=== PATIENT | male | born 1960 | race Caucasian/White ===

== ENCOUNTER → 2017-02-07 | Outpatient (REF) | payer OTHER ==
[2017-02-07 17:39] LABS: ALBUMIN 2.8 GM/DL (3.2-5.2); ALKALINE PHOSPHATASE 55 U/L (45-117); ALT/SGPT 20 U/L (12-78); ANION GAP 8 MEQ/L (8-16); AST/SGOT 29 U/L (15-37); BILIRUBIN,TOTAL 0.4 MG/DL (0.2-1.0); BLOOD UREA NITROGEN 4 MG/DL (7-18); CALCIUM LEVEL 8.2 MG/DL (8.5-10.1); CARBON DIOXIDE LEVEL 29 MEQ/L (21-32); CHLORIDE LEVEL 103 MEQ/L (98-107); CREATININE FOR GFR 1.45 MG/DL (0.70-1.30); GLOMERULAR FILTRATION RATE 53.4 (>56); GLUCOSE, FASTING 75 MG/DL (70-105); POTASSIUM SERUM 3.8 MEQ/L (3.5-5.1); SODIUM LEVEL 140 MEQ/L (136-145); TOTAL PROTEIN 6.8 GM/DL (6.4-8.2)
[2017-02-07 18:03] LABS: MEAN CORPUSCULAR HEMOGLOBIN 37.2 pg (27.0-33.0); MEAN CORPUSCULAR HGB CONC 32.7 g/dl (32.0-36.5); RED CELL DISTRIBUTION WIDTH 13.1 % (11.5-14.5); WHITE BLOOD COUNT 5.6 K/mm3 (4.0-10.0)
== END ==
LOC: M LAB REF 16:09
PROVIDERS: ATTEND Internal Medicine Infectious Disease
DX: M86.01 Acute hematogenous osteomyelitis, shoulder (principal)

== ENCOUNTER → 2017-02-14 | Outpatient (REF) | payer OTHER ==
[2017-02-14 19:14] LABS: MEAN CORPUSCULAR HEMOGLOBIN 37.7 pg (27.0-33.0); MEAN CORPUSCULAR HGB CONC 33.8 g/dl (32.0-36.5); MEAN CORPUSCULAR VOLUME 111.7 fl (80.0-96.0); RED CELL DISTRIBUTION WIDTH 13.2 % (11.5-14.5); WHITE BLOOD COUNT 5.9 K/mm3 (4.0-10.0)
[2017-02-14 19:46] LABS: ALBUMIN 2.7 GM/DL (3.2-5.2); ALBUMIN/GLOBULIN RATIO 0.66 (1.00-1.93); ALKALINE PHOSPHATASE 47 U/L (45-117); ALT/SGPT 10 U/L (12-78); ANION GAP 6 MEQ/L (8-16); AST/SGOT 21 U/L (15-37); BILIRUBIN,TOTAL 0.4 MG/DL (0.2-1.0); BLOOD UREA NITROGEN 2 MG/DL (7-18); CALCIUM LEVEL 8.5 MG/DL (8.5-10.1); CARBON DIOXIDE LEVEL 29 MEQ/L (21-32); CHLORIDE LEVEL 102 MEQ/L (98-107); CREATININE FOR GFR 0.82 MG/DL (0.70-1.30); GLOMERULAR FILTRATION RATE > 60.0 (>56); GLUCOSE, FASTING 70 MG/DL (70-105); POTASSIUM SERUM 3.9 MEQ/L (3.5-5.1); SODIUM LEVEL 137 MEQ/L (136-145); TOTAL PROTEIN 6.8 GM/DL (6.4-8.2)
== END ==
LOC: M LAB REF 16:46
PROVIDERS: ATTEND Internal Medicine Infectious Disease
DX: Z00.00 Encounter for general adult medical examination without abnormal findings (principal)

== ENCOUNTER → 2017-02-22 | Outpatient (REF) | payer OTHER ==
[2017-02-22 16:22] LABS: MEAN CORPUSCULAR HEMOGLOBIN 36.7 pg (27.0-33.0); MEAN CORPUSCULAR HGB CONC 34.3 g/dl (32.0-36.5); MEAN CORPUSCULAR VOLUME 107.2 fl (80.0-96.0); RED CELL DISTRIBUTION WIDTH 12.8 % (11.5-14.5); WHITE BLOOD COUNT 5.7 10^3/uL (4.0-10.0)
[2017-02-22 16:42] LABS: ALBUMIN 2.9 GM/DL (3.2-5.2); ALBUMIN/GLOBULIN RATIO 0.73 (1.00-1.93); ALKALINE PHOSPHATASE 43 U/L (45-117); ALT/SGPT 14 U/L (12-78); ANION GAP 9 MEQ/L (8-16); AST/SGOT 26 U/L (15-37); BILIRUBIN,TOTAL 0.3 MG/DL (0.2-1.0); BLOOD UREA NITROGEN 3 MG/DL (7-18); CALCIUM LEVEL 8.8 MG/DL (8.5-10.1); CARBON DIOXIDE LEVEL 26 MEQ/L (21-32); CHLORIDE LEVEL 102 MEQ/L (98-107); CREATININE FOR GFR 0.75 MG/DL (0.70-1.30); GLOMERULAR FILTRATION RATE > 60.0 (>56); GLUCOSE, FASTING 88 MG/DL (70-105); SODIUM LEVEL 137 MEQ/L (136-145); TOTAL PROTEIN 6.9 GM/DL (6.4-8.2)
== END ==
LOC: M LAB REF 15:44
PROVIDERS: ATTEND Internal Medicine Infectious Disease
DX: M86.112 Other acute osteomyelitis, left shoulder (principal)

== ENCOUNTER → 2017-02-28 | Outpatient (REF) | payer OTHER ==
[2017-02-28 18:34] LABS: MEAN CORPUSCULAR HEMOGLOBIN 35.8 pg (27.0-33.0); MEAN CORPUSCULAR HGB CONC 33.8 g/dl (32.0-36.5); RED CELL DISTRIBUTION WIDTH 12.5 % (11.5-14.5); WHITE BLOOD COUNT 7.5 10^3/uL (4.0-10.0)
[2017-02-28 20:33] LABS: ALBUMIN 3.2 GM/DL (3.2-5.2); ALBUMIN/GLOBULIN RATIO 0.73 (1.00-1.93); ALKALINE PHOSPHATASE 54 U/L (45-117); ALT/SGPT 18 U/L (12-78); ANION GAP 9 MEQ/L (8-16); AST/SGOT 38 U/L (15-37); BILIRUBIN,TOTAL 0.4 MG/DL (0.2-1.0); BLOOD UREA NITROGEN 3 MG/DL (7-18); CALCIUM LEVEL 8.9 MG/DL (8.5-10.1); CARBON DIOXIDE LEVEL 26 MEQ/L (21-32); CHLORIDE LEVEL 100 MEQ/L (98-107); CREATININE FOR GFR 0.91 MG/DL (0.70-1.30); GLOMERULAR FILTRATION RATE > 60.0 (>56); GLUCOSE, FASTING 84 MG/DL (70-105); POTASSIUM SERUM 4.2 MEQ/L (3.5-5.1); SODIUM LEVEL 135 MEQ/L (136-145); TOTAL PROTEIN 7.6 GM/DL (6.4-8.2)
== END ==
LOC: M LAB REF 17:24
PROVIDERS: ATTEND Internal Medicine Infectious Disease
DX: M86.112 Other acute osteomyelitis, left shoulder (principal)

== ENCOUNTER → 2019-04-25 | Outpatient (CLI) | payer OTHER ==
[~2019-04-25] MED LIST: GASTROGRAFIN SOLUTION 30ML (Q9963) As Ordered ONE; ISOVUE-370 76% 100ML VIAL (Q9967) As Ordered ONE
--- NOTE | 2019-04-25 18:33 | REP ---
Clinical: Ventral hernia. Pain. Technique: Axial contrast enhanced images from the lung bases to the pubic symphysis using oral (per protocol) and 100 ml Isovue 370 intravenous contrast material with coronal and sagittal re-formations. Comparison: None. Findings: Marked ascites noted throughout the abdomen and pelvis with enlarged heterogeneous hepatic parenchyma and there is subtle micronodular hepatic contour suggesting underlying cirrhosis. Spleen, pancreas, bilateral adrenal glands and kidneys appear normal. The gallbladder is distended without obvious gallstones and no obvious biliary ductal dilatation is appreciated. The enteric system is without obstruction or acute inflammatory process. Colonic diverticulosis noted without acute diverticulitis. Pelvis demonstrates normal bladder and age appropriate prostate/seminal vesicles. No free air. Scattered mesenteric and retroperitoneal lymph nodes are nonspecific and possibly reactive due to the ascites and presumed cirrhosis. A small ascites-filled periumbilical hernia measures 2 cm diameter. Atherosclerotic changes to the aorta and vasculature noted without aneurysm or dissection. Musculoskeletal structures demonstrate degenerative changes without focal abnormality. Lung bases demonstrate moderate bibasilar atelectasis and small bilateral pleural effusions. Impression: 1. Findings most compatible with cirrhosis including heterogeneous enlarged liver with nodular contour and marked ascites. 2. Small periumbilical hernia containing ascites. 3. Moderate bibasilar atelectasis and small pleural effusions. Electronically Signed by Rahat Cabrales MD 04/25/2019 06:24 P
== END ==
LOC: M RAD 15:22
PROVIDERS: ATTEND Family Medicine
DX: K43.9 Ventral hernia without obstruction or gangrene (principal)
CPT/HCPCS: 74178; Q9963; Q9967

== ENCOUNTER 2019-05-06 00:42 | Inpatient (IN) | payer OTHER ==
[~2019-05-06] VITALS: Ht 180.3 cm; Wt 59.1 kg
[2019-05-06] VITALS (22 sets, daily range): BP systolic 84–122; BP diastolic 50–65
[2019-05-06] MEDS ORDERED: LISI10TA4 PO (01:32)
[2019-05-06] MEDS ORDERED: MULTIVITAMIN -ADULT INJECTION 10 ML, THIAMINE INJection 100 MG, FOLIC ACID 1 MG in NS 1... IV ONE (02:00)
[2019-05-06] MEDS ORDERED: THIAMINE 100 MG TAB PO ONE (02:00)
[2019-05-06 02:06] LABS: HEMATOCRIT 30.9 % (42.0-52.0); HEMOGLOBIN 10.5 g/dl (13.5-17.5); MEAN CORPUSCULAR HEMOGLOBIN 38.5 pg (27.0-33.0); MEAN CORPUSCULAR VOLUME 113.2 fl (80.0-96.0); PLATELET COUNT, AUTOMATED 236 10^3/uL (150-450); RED BLOOD COUNT 2.73 10^6/uL (4.30-6.10); WHITE BLOOD COUNT 12.6 10^3/uL (4.0-10.0)
[2019-05-06 02:10] LABS: INR 1.87; PROTHROMBIN TIME 21.3 SECONDS (11.8-14.0)
[2019-05-06 02:11] LABS: PARTIAL THROMBOPLASTIN TIME 36.1 SECONDS (25.0-38.4)
[2019-05-06 02:21] LABS: ALBUMIN 2.5 GM/DL (3.2-5.2); ALT/SGPT 58 U/L (12-78); BILIRUBIN,DIRECT 1.7 MG/DL (0.0-0.2); BILIRUBIN,TOTAL 2.5 MG/DL (0.2-1.0); BLOOD UREA NITROGEN 41 MG/DL (7-18); CALCIUM LEVEL 8.4 MG/DL (8.5-10.1); CARBON DIOXIDE LEVEL 26 MEQ/L (21-32); CHLORIDE LEVEL 99 MEQ/L (98-107); CREATININE FOR GFR 1.26 MG/DL (0.70-1.30); GLOMERULAR FILTRATION RATE > 60.0 (>56); GLUCOSE, FASTING 101 MG/DL (70-100); LIPASE 45 U/L (73-393); LYMPHOCYTES 4 % (16-44); MONOCYTES 4 % (0-5); NEUTROPHILS 92 % (28-66); POTASSIUM SERUM 3.7 MEQ/L (3.5-5.1); SODIUM LEVEL 135 MEQ/L (136-145)
[2019-05-06 02:22] LABS: ETHYL ALCOHOL (ETHANOL) < 0.003 % (0.000-0.010); PLATELET ESTIMATE NORMAL (NORMAL); TOXIC VACUOLATION 1+
[2019-05-06 02:24] LABS: POLYCHROMASIA 1+
[2019-05-06] MEDS ORDERED: PIPERACILLIN/TAZOBACTAM SOD 3.375 GM in D5W MINI-BAG PLUS 50 ML IV ONE (03:15)
[2019-05-06] MEDS ORDERED: LORazepam 2 MG TAB PO PRN (03:30)
[2019-05-06] MEDS ORDERED: ACETAMINOPHEN TAB 650MG DOSE (2X325MG) PO PRN (03:30)
[2019-05-06] MEDS ORDERED: MAALOX 30 ML SUSP *UDC PO PRN (03:30)
--- NOTE | 2019-05-06 03:32 | HPEPDOC ---
[facility] Medical History & Physical Date of Admission May 06, 2019 Date of Service: May 06, 2019 Other Provider [facility] Attending Physician: BEN HANDLEY MD History and Physical TIME OF SERVICE: 405 AM CHIEF COMPLAINT: Abdominal pain HISTORY OF PRESENT ILLNESS: The majority of the history was obtained from the patient's . The patient is not answering all questions appropriately. This is a 65-year-old male who presents with complaints of aching, 6/10 in severity, abdominal pain for 4 weeks. As a result of the pain he has not been able to eat and drink; he has history of alcoholism but has not had a drink in 4 weeks because of the pain. He came to the hospital early this morning because his found him wandering around the house confused. The patient's added that he has been coughing black phlegm, and has had a headache. She denies awareness of him having nausea, vomiting, fever, chills, or runny nose. He use to to have lower extremity edema, but this resolved recently after he was started a new "blood pressure" medication. REVIEW OF SYSTEMS: 12 point review of systems negative except as listed in HPI PAST MEDICAL/ SURGICAL HISTORY: Alcoholic liver cirrhosis with ascites and pleural effusion ( per CT of the abdomen and pelvis done on 04/25/2019) Chronic hypertension Chronic diastolic dysfunction/ HEFpEF History of left shoulder surgery SOCIAL HISTORY: He quit smoking He has a history of alcoholism and at his baseline usually drinks at least a 12 pack per day He is a FAMILY HISTORY: His father had coronary artery disease His mother had lupus Another relative had kidney disease ALLERGIES: Please see below HOME MEDICATIONS: Please see below PHYSICAL EXAMINATION: VITAL SIGNS: Please see below NORMAL PHYSICAL EXAM GEN: Cachectic/ well developed/ anxious INTEGUMENT: jaundice HEENT: normocephalic / atraumatic /mucus membranes moist and pink / sclera icteric CVS: RRR/NMRG/ radial and dorsalis pedis pulses intact / no lower extremity edema LUNGS: able to speak full sentences without stopping to take a breath / lungs are clear to auscultation bilaterally on room air ABDOMEN: is abdomen is slightly distended/he has a small umbilical hernia and medusae/ abdomen is tender with palpation MSK/EXTREMITIES: range of motion intact in all 4 extremities NEURO: CN 2-12 are grossly intact / speech is not dysarthric / strength is 4 out of 4 in all extremities PSYCH: he is alert and oriented to person and place but not time/ he is able able to understand and follow all commands LABORATORY DATA: See below IMAGING: No new imaging MICROBIOLOGY: Please see below ASSESSMENT: Mr. White is a 58-year-old with past medical history of alcoholic liver cirrhosis, chronic hypertension, & chronic HEpEF who will be admitted for management of SBP PLAN: 1. Sepsis secondary to Spontaneous Bacterial Peritonitis Clinical signs and symptoms that support the diagnosis of SBP include confusion, abdominal pain, ascites, leukocytosis SIRS criteria include tachycardia, and leukocytosis Lactic acid is 5.8 NEW2S Score = 5 points = medium risk Plan: admit to PCU for frequent neurochecks / telemetry / Sepsis protocol w repeat lactic acid /for now we will start ciprofloxacin bc cefotaxime is not on the formulary / since his BUN is >30 we will also give 1.5 g/kg of intravenous albumin (25%) today and 1 g/kg of albumin on day 3 bc this practice has demonstrated a survival benefit / the day time team can f/u w GI during the day to determine if he should be discharged with norfloxacin OR ciprofloxacin for secondary prevention of SBP / we will not order IVF to avoid third spacing in the setting of liver failure / target MAP 65 to 70 / f/u Is and Os with target UOP of at least 0.5 ml/kg/H / target serum glucose 140-180 while acutely ill / f/u blood cx and abdominal fluid cx results 2. Alcoholic Liver cirrhosis CT report from Apr 25 reviewed he also had ascites and pleural effusions The coagulopathy and transaminitis likely due to liver failure Meld score (new) = 20 points = 19.6% estimated 3 month mortality Plan:f/u strict Is and Os and daily weights / salt restriction to <2g / trend L FTs and coags / since his MELD Score >10 we will consult GI / / the day time team can consider discharging him with baclofen to help him with abstinence from alcohol / avoid NSAIDs & ARBs 3. Macrocytic anemia, likely due to alcohol abuse His baseline hemoglobin is around 13--> today it is 10.5 If his retic # is elevated the differential includes B12 deficiency or folate deficiency. If the retic # is decreased the macrocytosi smay be due to liver disease. Since he has liver failure he may also have a component of anemia of chronic disease Plan:f/u CBC, reticulocyte count, B12, RBC folate, thiamine, iron panel 4. Chronic diastolic dysfunction 2/2 Chronic HTN Plan: will hold antihypertensives because of acute illness 5. Low TSH, Likely due to euthyroid sick syndrome. Plan: He can follow-up with PCP for repeat TFTs in 6 weeks DVT prophylaxis with lovenox Disposition likely home after more than midnight stay Vital Signs Vital Signs Date Time Temp Pulse Resp B/P (MAP) Pulse Ox O2 Delivery O2 Flow Rate FiO2 05/06/19 03:00 109 16 123/80 (94) 98 Room Air 05/06/19 01:19 96.2 Laboratory Data Labs 24H Laboratory Tests 2 05/06/19 01:17: Nucleated Red Blood Cells % (auto) 0.0, Neutrophils 92H, Lymphocytes (Manual) 4L, Monocytes (Manual) 4, Polychromasia 1+, Macrocytosis 3+, Toxic Vacuolation 1+, Platelet Estimate NORMAL, Prothrombin Time 21.3H, Prothromb Time International Ratio 1.87, Activated Partial Thromboplast Time 36.1, Anion Gap 10, Glomerular Filtration Rate > 60.0, Lactic Acid Level 5.8*H, Calcium Level 8.4L, Total Bilirubin 2.5H, Direct Bilirubin 1.7H, Aspartate Amino Transf (AST/SGOT) 119H, Alanine Aminotransferase (ALT/SGPT) 58, Alkaline Phosphatase 59, Ammonia < 10, Total Protein 7.0, Albumin 2.5L, Albumin/Globulin Ratio 0.56L, Lipase 45L, Ethyl Alcohol Level < 0.003 CBC/BMP Laboratory Tests 05/06/19 01:17 Home Medications Scheduled Lisinopril (Lisinopril) 10 Mg Tablet, 10 MG PO DAILY Allergies Coded Allergies: No Known Allergies (Unverified , 07/22/15) A-FIB/CHADSVASC A-FIB History Current/History of A-Fib/PAF?: No Current PO Anticoag Therapy: No BEN HANDLEY MD May 06, 2019 03:32
[2019-05-06] MEDS: THIAMINE 100 MG TAB PO SCH ×2 (03:34→22:18)
[2019-05-06] MEDS ORDERED: ONDANSETRON 4MG/2ML VIAL (J2405) As Ordered ONE (03:52)
[2019-05-06] MEDS ORDERED: ZOSYN 3.375 GM VIAL (J2543) As Ordered ONE (03:52)
[2019-05-06] MEDS ORDERED: MORPHINE 4 MG/ML 1ML VIAL/SYRINGE (J2270) As Ordered ONE (03:53)
[2019-05-06 03:56] LABS: THYROID STIMULATING HORMONE 0.177 uIU/ML (0.358-3.740)
[2019-05-06] MEDS ORDERED: MORPHINE 4 MG/ML 1ML VIAL/SYRINGE (J2270) IV ONE (04:00)
[2019-05-06] MEDS ORDERED: LIDOCAINE W/EPINEPHRINE 1% 20ML VIAL SC ONE (04:00)
[2019-05-06 04:44] LABS: APPEARANCE, BODY FLUID CLOUDY (CLEAR); ASCITES FL COLOR YELLOW (COLORLESS); SOURCE, BODY FLUID ASCITES
[2019-05-06] MEDS ORDERED: NS 1,000 ML IV SCH (05:45)
[2019-05-06] MEDS ORDERED: CIPROFLOXACIN 400 MG in IV 1 EA IV SCH (06:00)
[2019-05-06 06:22] LABS: FERRITIN 917 NG/ML (26-388); IRON (FE) 9 UG/DL (65-175); TOTAL IRON BINDING CAPACITY 150 UG/DL (250-450)
[2019-05-06 06:32] LABS: ABG HCO3 21.7 MEQ/L (22.0-26.0); ABG O2 SATURATION 95.9 % (95.0-99.0); ABG PARTIAL PRESSURE CO2 29.3 mmHg (35.0-45.0); ABG PARTIAL PRESSURE O2 79.7 mmHg (75.0-100.0); ABG STANDARD HCO3 23.6 MEQ/L (22.0-26.0); ABG TOTAL CO2 22.6 MEQ/L (22.0-29.0); ABG pH (ARTERIAL) 7.488 UNITS (7.350-7.450)
[2019-05-06] MEDS ORDERED: IBUPROFEN 600 MG TAB PO ONE (07:15)
[2019-05-06 07:18] LABS: HEMATOCRIT 25.9 % (42.0-52.0)
[2019-05-06] MEDS ORDERED: KETOROLAC 30 MG/ML VIAL (J1885) IV ONE (08:45)
[2019-05-06] MEDS ORDERED: NS 500 ML IV ONE (08:45)
[2019-05-06] MEDS ORDERED: ENOXAPARIN 30 MG/0.3 ML SYR (J1650) SC SCH (09:00)
[2019-05-06] MEDS: MULTIVITAMINS/MINERALS THERAP 1 TAB PO SCH ×2 (09:20→13:38)
[2019-05-06] MEDS: ONDANSETRON 4MG/2ML VIAL (J2405) IV PRN ×2 (09:20→09:23)
[2019-05-06] MEDS: FOLIC ACID 1 MG TAB PO SCH ×2 (09:21→13:38)
[2019-05-06] MEDS: cefTRIAXone SOD 1 GM in D5W MINI-BAG PLUS 50 ML IV SCH ×2 (09:22→22:18)
[2019-05-06] MEDS ORDERED: PIPERACILLIN/TAZOBACTAM SOD 3.375 GM in D5W MINI-BAG PLUS 50 ML IV SCH ×2 (12:00)
[2019-05-06] MEDS ORDERED: KETOROLAC 30 MG/ML VIAL (J1885) IV SCH (17:00)
[2019-05-06 17:18] LABS: HEMATOCRIT 24.5 % (42.0-52.0); MEAN CORPUSCULAR HEMOGLOBIN 38.2 pg (27.0-33.0); MEAN CORPUSCULAR HGB CONC 33.9 g/dl (32.0-36.5); MEAN CORPUSCULAR VOLUME 112.9 fl (80.0-96.0); PLATELET COUNT, AUTOMATED 147 10^3/uL (150-450); RED BLOOD COUNT 2.17 10^6/uL (4.30-6.10); WHITE BLOOD COUNT 10.2 10^3/uL (4.0-10.0)
[2019-05-06 17:24] LABS: HEMOGLOBIN 8.3 g/dl (13.5-17.5)
[2019-05-06 17:32] LABS: ALBUMIN 2.5 GM/DL (3.2-5.2); ALT/SGPT 46 U/L (12-78); BILIRUBIN,TOTAL 2.3 MG/DL (0.2-1.0); BLOOD UREA NITROGEN 45 MG/DL (7-18); CALCIUM LEVEL 8.2 MG/DL (8.5-10.1); CARBON DIOXIDE LEVEL 25 MEQ/L (21-32); CHLORIDE LEVEL 104 MEQ/L (98-107); CREATININE FOR GFR 1.19 MG/DL (0.70-1.30); GLOMERULAR FILTRATION RATE > 60.0 (>56); GLUCOSE, FASTING 110 MG/DL (70-100); POTASSIUM SERUM 3.6 MEQ/L (3.5-5.1); SODIUM LEVEL 136 MEQ/L (136-145); TOTAL PROTEIN 5.9 GM/DL (6.4-8.2)
[2019-05-06 17:40] LABS: LYMPHOCYTES 9 % (16-44); MONOCYTES 5 % (0-5); NEUTROPHILS 86 % (28-66); PLATELET ESTIMATE NORMAL (NORMAL)
--- NOTE | 2019-05-06 18:42 | IPNPDOC ---
Text Note Date of Service The patient was seen on 05/06/19. NOTE SUBJECTIVE: Complains of abdominal pain and distension for a month worse over the past 4 days. As per has been confused over the past 4 days. Poor appetite but today did seat some in the hospital more than what he was doing at home. Says has been cutting down on the alcohol intake over the past 6 months to a year and over the past month did not have much drink . His last drink was about 4 to 5 days ago when the pain became really bad. No fevers at home, no vomiting or diarrhea. He also complains of left hip pain. PHYSICAL EXAMINATION: VITAL SIGNS: Please see below. NORMAL PHYSICAL EXAM GEN: Cachectic/ well developed/ confused regarding time HEENT: normocephalic / atraumatic /mucus membranes moist and pink / sclera icteric CVS: RRR/NMRG/ radial and dorsalis pedis pulses intact / no lower extremity edema, No rub murmur or gallop. LUNGS: able to speak full sentences without stopping to take a breath / lungs are clear to auscultation bilaterally on room air ABDOMEN: is abdomen is tensely distended/he has a small umbilical hernia and medusae/ abdomen is tender with palpation in all quadrants, bowel sounds present. MSK/EXTREMITIES: range of motion intact in all 4 extremities NEURO: CN 2-12 are grossly intact / speech is not dysarthric / strength is 4 out of 4 in all extremities PSYCH: he is alert and oriented to person and place but not time/ he is able able to understand and follow all commands LABORATORY DATA: Reviewed See below. MICROBIOLOGY: Please see below. ASSESSMENT: Mr. White is a 58-year-old with past medical history of Alcoholic liver cirrhosis with ascites and pleural effusion ( per CT of the abdomen and pelvis done on 04/25/2019 ), Hypertension, Chronic Systolic and diastolic CHF with EF of 45 to 50% in echo of 2016, History of left shoulder surgery presented to the ED with abdominal pain and distention worsening over the past 1 month and confusion for the past 4 days which was really worse on coni morning of the admission when found found him wandering about the house confused. He had a diagnostic tap in the ED and was found to have SBP. SBP cultures showing gram negative rods will change antibiotics to ceftriaxone will give 1.5 gm/ kg body weight of albumin 25% over today. will schedule for therapeutic paracentesis for tomorrow. GI consulted. Sepsis secondary to Spontaneous Bacterial Peritonitis will continue with ceftriaxone. Metabolic encephalopathy due to sepsis and SBP Ammonia is not elevated so unlikely hepatic encephalopathy Elevated lactate part of it is probably due to alcoholic cirrhosis. it did improve but not completely Coagulopathy. will recheck tomorrow may have to give FFP before IR will do a paracentesis. Decompensated Alcoholic Liver cirrhosis with ascites, coagulopathy, SBP Macrocytic anemia, likely due to alcohol abuse reticulocyte count is elevated. follow up B12, RBC folate, thiamine There is no iron deficiency. will transfuse PRN Chronic systolic and diastolic CHF EF of 45 to 50% in the echo from 2016 now seems to be intra vascularly dehydrated as his Hb is much higher than his baseline. will hold any diuretics and will not give any further fluids. Low TSH, Likely due to euthyroid sick syndrome. He can follow-up with PCP for repeat TFTs in 6 weeks DVT prophylaxis with TEDS, patient is auto anticoagulated at this point. VS,Fishbone, I+O VS, Fishbone, I+O Laboratory Tests 05/06/19 01:17 05/06/19 07:01 05/06/19 16:45 Vital Signs Date Time Temp Pulse Resp B/P (MAP) Pulse Ox O2 Delivery O2 Flow Rate FiO2 05/06/19 15:57 99.0 104 16 94/54 96 Room Air I&O- Last 24 Hours up to 6 AM 05/06/19 06:00 Intake Total 1050 ml Balance 1050 ml SHANTHI DAVIS MD May 06, 2019 18:42
[2019-05-06 20:18] LABS: HEMATOCRIT 22.6 % (42.0-52.0); HEMOGLOBIN 7.6 g/dl (13.5-17.5); MEAN CORPUSCULAR HEMOGLOBIN 37.4 pg (27.0-33.0); MEAN CORPUSCULAR HGB CONC 33.6 g/dl (32.0-36.5); MEAN CORPUSCULAR VOLUME 111.3 fl (80.0-96.0); PLATELET COUNT, AUTOMATED 131 10^3/uL (150-450); RED BLOOD COUNT 2.03 10^6/uL (4.30-6.10)
[2019-05-06 20:34] LABS: LYMPHOCYTES 12 % (16-44); MONOCYTES 7 % (0-5); NEUTROPHILS 74 % (28-66); PLATELET ESTIMATE NORMAL (NORMAL)
[2019-05-06 20:35] LABS: POLYCHROMASIA 1+
[2019-05-06 20:38] LABS: ALBUMIN 2.8 GM/DL (3.2-5.2); ALT/SGPT 41 U/L (12-78); BLOOD UREA NITROGEN 44 MG/DL (7-18); CALCIUM LEVEL 8.4 MG/DL (8.5-10.1); CARBON DIOXIDE LEVEL 25 MEQ/L (21-32); CHLORIDE LEVEL 104 MEQ/L (98-107); CREATININE FOR GFR 1.16 MG/DL (0.70-1.30); GLOMERULAR FILTRATION RATE > 60.0 (>56); GLUCOSE, FASTING 103 MG/DL (70-100); POTASSIUM SERUM 3.2 MEQ/L (3.5-5.1); SODIUM LEVEL 136 MEQ/L (136-145)
[2019-05-06] MEDS: KCL 10MEQ/100ML SWI (KRUN) 10 MEQ in IV 1 EA IV SCH (23:10)
[2019-05-07] VITALS (24 sets, daily range): BP systolic 90–127; BP diastolic 50–76
[2019-05-07] MEDS: KCL 10MEQ/100ML SWI (KRUN) 10 MEQ in IV 1 EA IV SCH (00:26)
[2019-05-07 01:15] LABS: HEMATOCRIT 23.1 % (42.0-52.0); HEMOGLOBIN 7.8 g/dl (13.5-17.5); MEAN CORPUSCULAR HEMOGLOBIN 37.5 pg (27.0-33.0); MEAN CORPUSCULAR HGB CONC 33.8 g/dl (32.0-36.5); MEAN CORPUSCULAR VOLUME 111.1 fl (80.0-96.0); PLATELET COUNT, AUTOMATED 143 10^3/uL (150-450); RED BLOOD COUNT 2.08 10^6/uL (4.30-6.10); WHITE BLOOD COUNT 10.5 10^3/uL (4.0-10.0)
[2019-05-07 02:10] LABS: LYMPHOCYTES 9 % (16-44); MONOCYTES 4 % (0-5); NEUTROPHILS 80 % (28-66); PLATELET ESTIMATE NORMAL (NORMAL)
[2019-05-07 02:11] LABS: POLYCHROMASIA 1+
[2019-05-07 02:17] LABS: ALBUMIN 3.3 GM/DL (3.2-5.2); ALT/SGPT 43 U/L (12-78); BILIRUBIN,TOTAL 2.2 MG/DL (0.2-1.0); BLOOD UREA NITROGEN 42 MG/DL (7-18); CALCIUM LEVEL 8.7 MG/DL (8.5-10.1); CARBON DIOXIDE LEVEL 26 MEQ/L (21-32); CHLORIDE LEVEL 103 MEQ/L (98-107); CREATININE FOR GFR 1.11 MG/DL (0.70-1.30); GLOMERULAR FILTRATION RATE > 60.0 (>56); GLUCOSE, FASTING 98 MG/DL (70-100); POTASSIUM SERUM 3.6 MEQ/L (3.5-5.1); SODIUM LEVEL 138 MEQ/L (136-145); TOTAL PROTEIN 6.3 GM/DL (6.4-8.2)
[2019-05-07] MEDS: KETOROLAC 30 MG/ML VIAL (J1885) IV PRN ×3 (03:19→22:53)
[2019-05-07 05:48] LABS: HEMATOCRIT 22.9 % (42.0-52.0); HEMOGLOBIN 7.8 g/dl (13.5-17.5); MEAN CORPUSCULAR HEMOGLOBIN 37.9 pg (27.0-33.0); MEAN CORPUSCULAR HGB CONC 34.1 g/dl (32.0-36.5); MEAN CORPUSCULAR VOLUME 111.2 fl (80.0-96.0); PLATELET COUNT, AUTOMATED 143 10^3/uL (150-450); RED BLOOD COUNT 2.06 10^6/uL (4.30-6.10); WHITE BLOOD COUNT 9.6 10^3/uL (4.0-10.0)
[2019-05-07 05:51] LABS: INR 1.99; PARTIAL THROMBOPLASTIN TIME 41.2 SECONDS (25.0-38.4); PROTHROMBIN TIME 22.4 SECONDS (11.8-14.0)
[2019-05-07 05:58] LABS: ALT/SGPT 42 U/L (12-78); BILIRUBIN,DIRECT 1.3 MG/DL (0.0-0.2); BILIRUBIN,TOTAL 2.1 MG/DL (0.2-1.0); BLOOD UREA NITROGEN 41 MG/DL (7-18); CALCIUM LEVEL 8.6 MG/DL (8.5-10.1); CARBON DIOXIDE LEVEL 25 MEQ/L (21-32); CHLORIDE LEVEL 104 MEQ/L (98-107); CREATININE FOR GFR 1.01 MG/DL (0.70-1.30); GLOMERULAR FILTRATION RATE > 60.0 (>56); GLUCOSE, FASTING 96 MG/DL (70-100); MAGNESIUM LEVEL 2.1 MG/DL (1.8-2.4); POTASSIUM SERUM 3.5 MEQ/L (3.5-5.1); SODIUM LEVEL 136 MEQ/L (136-145); TOTAL PROTEIN 6.1 GM/DL (6.4-8.2)
[2019-05-07 06:32] LABS: ATYPICAL LYMPH 1 % (0-5); LYMPHOCYTES 2 % (16-44); MONOCYTES 9 % (0-5); NEUTROPHILS 86 % (28-66)
[2019-05-07 06:33] LABS: PLATELET ESTIMATE NORMAL (NORMAL); POLYCHROMASIA 1+
--- NOTE | 2019-05-07 07:44 | REP ---
AP LATERAL LEFT HIP: 05/06/2019. COMPARISON: CT abdomen pelvis 04/25/2019. CLINICAL HISTORY: Left hip pain. FINDINGS: AP and frog-leg views show small rim osteophyte in the femoral head. Hip joint space shows some sclerosis acetabular roof without significant narrowing. There is no AVN or fracture. No fracture about the acetabulum, ischia or symphysis pubis, iliac wing SI joints, sacral ala and foramina are unremarkable. Some degenerative changes lower lumbar spine. IMPRESSION: 1. Mild osteoarthritic change without fracture, avulsion or other acute finding. No AVN. Electronically Signed by Joaquin Ross MD 05/07/2019 07:49 A
[2019-05-07] MEDS: THIAMINE 100 MG TAB PO SCH ×2 (09:44→20:07)
[2019-05-07] MEDS: FOLIC ACID 1 MG TAB PO SCH (09:45)
[2019-05-07] MEDS: MULTIVITAMINS/MINERALS THERAP 1 TAB PO SCH (09:46)
[2019-05-07] MEDS: oxyCODONE 5MG TAB PO PRN ×2 (09:46→17:29)
[2019-05-07] MEDS: cefTRIAXone SOD 1 GM in D5W MINI-BAG PLUS 50 ML IV SCH ×2 (09:46→20:07)
--- NOTE | 2019-05-07 10:11 | IPNPDOC ---
Text Note Date of Service The patient was seen on 05/07/19. NOTE SUBJECTIVE: Patient complains of persistent abdominal pain and distension. Still a little confused but says better, no fever or chills, no voming , no bowel movement. Very poor oral intake. Patient does have some voiding problems PHYSICAL EXAMINATION: VITAL SIGNS: Please see below. GEN: Cachectic, confused regarding time HEENT: normocephalic / atraumatic /mucus membranes moist and pink / sclera icteric CVS: RRR/NMRG/ radial and dorsalis pedis pulses intact / no lower extremity edema, No rub murmur or gallop. LUNGS: able to speak in full sentences without stopping to take a breath / lungs are clear to auscultation bilaterally on room air ABDOMEN: abdomen is tensely distended/he has a small umbilical hernia and medusae/ abdomen is diffusely tender to palpation bowel sounds present. MSK/EXTREMITIES: range of motion intact in all 4 extremities NEURO: CN 2-12 are grossly intact / speech is not dysarthric / strength is 4 out of 4 in all extremities PSYCH: he is alert and oriented to person and place but not time/ he is able able to understand and follow all commands LABORATORY DATA: Reviewed See below. MICROBIOLOGY: Please see below. ASSESSMENT: Mr. White is a 58-year-old with past medical history of Alcoholic liver cirrhosis with ascites and pleural effusion ( per CT of the abdomen and pelvis done on 04/25/2019 ), Hypertension, Chronic Systolic and diastolic CHF with EF of 45 to 50% in echo of 2016, History of left shoulder surgery presented to the ED with abdominal pain and distention worsening over the past 1 month and conf usion for the past 4 days which was really worse on coni morning of the admission when found found him wandering about the house confused. He had a diagnostic tap in the ED and was found to have SBP. SBP cultures showing gram negative rods On ceftriaxone got 1.5 gm/ kg body weight of albumin 25% therapeutic paracentesis GI consulted. Sepsis secondary to Spontaneous Bacterial Peritonitis will continue with ceftriaxone. Metabolic encephalopathy due to sepsis and SBP Ammonia is not elevated so unlikely hepatic encephalopathy Elevated lactate part of it is probably due to alcoholic cirrhosis. it did improve Coagulopathy. due to Chronic liver disease. will give FFP. Decompensated Alcoholic Liver cirrhosis with ascites, coagulopathy, SBP Macrocytic anemia, likely due to alcohol abuse reticulocyte count is elevated. follow up B12, RBC folate, thiamine There is no iron deficiency. will transfuse PRN Chronic systolic and diastolic CHF EF of 45% to 50% in the echo from 2016 now seems to be intra vascularly dehydrated as his Hb is much higher than his baseline. will hold any diuretics and will not give any further fluids. Low TSH, Likely due to euthyroid sick syndrome. He can follow-up with PCP for repeat TFTs in 6 weeks DVT prophylaxis with TEDS, patient is auto anticoagulated at this point. VS,Fishbone, I+O VS, Fishbone, I+O Laboratory Tests 05/06/19 16:45 05/06/19 20:08 05/07/19 01:06 05/07/19 01:07 05/07/19 04:53 Vital Signs Date Time Temp Pulse Resp B/P (MAP) Pulse Ox O2 Delivery O2 Flow Rate FiO2 05/07/19 09:46 20 96 Room Air 05/07/19 09:15 98.0 109 112/69 I&O- Last 24 Hours up to 6 AM 05/07/19 06:00 Intake Total 1183.7 ml Output Total 580 ml Balance 603.7 ml SHANTHI DAVIS MD May 07, 2019 10:11
[2019-05-07] MEDS ORDERED: SLF 3 ML SYR IV PRN (14:45)
[2019-05-07 15:01] LABS: INR 1.66; PROTHROMBIN TIME 19.3 SECONDS (11.8-14.0)
[2019-05-07 15:02] LABS: PARTIAL THROMBOPLASTIN TIME 34.3 SECONDS (25.0-38.4)
[2019-05-07 16:06] LABS: APPEARANCE, BODY FLUID HAZY (CLEAR); PERITONEAL FL COLOR YELLOW (COLORLESS); SOURCE, BODY FLUID PERITONEAL
[2019-05-07 16:10] LABS: SPEC. GRAVITY BODY FLUIDS 1.015 (NOT ESTABLISHED)
[2019-05-07 16:19] LABS: SOURCE, BODY FLUID ALBUMIN PERITONEAL
[2019-05-07 16:28] LABS: SOURCE, BODY FLUID GLUCOSE PERITONEAL; SOURCE, BODY FLUID TOT PROTEIN PERITONEAL; TOTAL PROTEIN, BODY FLUID 1.7 G/DL (NOT ESTABLISHED)
--- NOTE | 2019-05-07 17:14 | REP ---
Ultrasound-guided paracentesis The procedure was performed under the direct supervision of Dr. Angela. The risks and benefits of the procedure were explained to the patient and informed consent was obtained. The largest pocket of fluid was localized in the right flank using ultrasound guidance. The skin was prepped and draped in a sterile fashion. 1% lidocaine was used as a local anesthetic. An 8-Arabic multi side-hole catheter was inserted using trocar technique. 3500 ml of anthony colored fluid was withdrawn with a sample sent to the lab for analysis. The patient tolerated the procedure well and there were no immediate complications. After the appropriate amount of monitored convalescence the patient was discharged from the department. Electronically Signed by CHARLIE Odom 05/07/2019 04:50 P Electronically Signed by Alejandro Angela MD 05/07/2019 05:06 P
[2019-05-07] MEDS: SLF 3 ML SYR IV SCH (20:07)
[2019-05-07] MEDS ORDERED: SPIRONOLACTONE 50 MG TAB PO SCH (21:00)
[2019-05-08] VITALS (17 sets, daily range): BP systolic 82–126; BP diastolic 50–75
[2019-05-08 00:52] LABS: HEMATOCRIT 25.8 % (42.0-52.0); HEMOGLOBIN 8.8 g/dl (13.5-17.5); MEAN CORPUSCULAR HEMOGLOBIN 37.8 pg (27.0-33.0); MEAN CORPUSCULAR HGB CONC 34.1 g/dl (32.0-36.5); MEAN CORPUSCULAR VOLUME 110.7 fl (80.0-96.0); PLATELET COUNT, AUTOMATED 165 10^3/uL (150-450); RED BLOOD COUNT 2.33 10^6/uL (4.30-6.10); WHITE BLOOD COUNT 14.9 10^3/uL (4.0-10.0)
--- NOTE | 2019-05-08 00:56 | REPVR ---
PROCEDURE INFORMATION: Exam: CT Abdomen And Pelvis Without Contrast Exam date and time: 05/07/2019 11:18 PM Age: 58 years old Clinical history: Bloating; Additional info: Acute abdominal ridigity and distention. History of a paracentesis on 05/07/2019. TECHNIQUE: Imaging protocol: Computed tomography of the abdomen and pelvis without contrast. Radiation optimization: All CT scans at this facility use at least one of these dose optimization techniques: automated exposure control; mA and/or kV adjustment per patient size (includes targeted exams where dose is matched to clinical indication); or iterative reconstruction. COMPARISON: PARACENTESIS NEEDLE PLACE US 05/07/2019 2:59:[address] ABD PELVIS W/O FOLLOWED BY WITH CONTRAST 04/25/2019 5:34 PM FINDINGS: Lungs: There is consolidation with air bronchograms in the left lower lobe, which has developed since the prior CT on 04/25/2019. There is dependent atelectasis in the right lower lobe. Heart: No cardiomegaly. There is a small water density pericardial effusion. There are coronary artery calcifications. Mediastinum: There is fluid in the esophagus, which can be seen with gastroesophageal reflux. Liver: The liver has a nodular contour, which can be seen with cirrhosis. There is a punctate calcified granuloma in the right hepatic lobe, which is unchanged compared to the prior CT on 04/25/2019. No hepatomegaly. Gallbladder and bile ducts: No calcified gallstones are seen. No dilation of the intrahepatic or extrahepatic bile ducts is noted. Pancreas: Unremarkable. No ductal dilation. Spleen: Unremarkable. No splenomegaly. Adrenals: Normal. No mass. Kidneys and ureters: The kidneys are unremarkable. No renal lesion is identified. No calculi are seen in the kidneys or ureters. There is no hydronephrosis or hydroureter. Stomach and bowel: There is colonic diverticulosis without evidence for diverticulitis. There is no evidence for a bowel obstruction, colitis, pneumatosis intestinalis, intussusception, or volvulus. Appendix: There is a 5 mm appendicolith in the proximal portion of the appendix, but the appendix is not dilated and there is no inflammatory fat stranding around the appendix to suggest acute appendicitis. Intraperitoneal space: There is a moderate amount of ascites, which is similar in appearance compared to the prior CT on 04/25/2019. There is a small amount of free air in the abdomen and pelvis, which may be related to the recent paracentesis performed earlier on 05/07/2019. A perforated viscus cannot entirely be excluded. Retroperitoneal space: No mass. Vasculature: No abdominal aortic aneurysm. There are extensive atherosclerotic calcifications. Lymph nodes: There is a 10 mm enlarged left para-aortic lymph node, which is stable compared to the prior CT on 04/25/2019. No other enlarged lymph nodes are noted in the abdomen or pelvis. Bladder: Unremarkable. No calculi or masses are noted in the bladder. Reproductive: There are calcifications in the prostate gland. The seminal vesicles are unremarkable. Bones/joints: The imaged bony structures are intact. There is no suspicious osteolytic lesion. Incidental note is made of a small bone island in the right femoral neck, which is unchanged compared to the prior CT on 04/25/2019. Soft tissues: There is a small periumbilical hernia containing fluid and gas. IMPRESSION: 1. Small amount of free air in the abdomen and pelvis, which may be related to the recent paracentesis performed earlier on 05/07/2019. A perforated viscus cannot entirely be excluded. 2. Consolidation with air bronchograms in the left lower lobe, which has developed since the prior CT on 04/25/2019 and may represent pneumonia. 3. Cirrhotic liver and a moderate amount of ascites, without significant change compared to the prior CT on 04/25/2019. 4. Colonic diverticulosis without evidence for diverticulitis. 5. Small periumbilical hernia containing fluid and gas. 6. Evidence for gastroesophageal reflux. Electronically signed by: Sidney Wilcox On 05/08/2019 00:56:35 AM
--- NOTE | 2019-05-08 00:57 | REPVR ---
PROCEDURE INFORMATION: Exam: US Abdomen Complete Exam date and time: 05/08/2019 12:11 AM Age: 58 years old Clinical history: Increased pain and distension, S/P paracentesis today; Additional info: Portal vein thrombus? TECHNIQUE: Imaging protocol: Real-time ultrasound of the abdomen with image documentation. COMPARISON: CT ABD PELVIS W/O CONTRAST 05/07/2019 11:35:14 PM FINDINGS: Liver: The echogenicity of the liver is heterogeneous. No liver mass is identified from the images obtained. The contour of the liver is nodular, which can be seen with cirrhosis. No hepatomegaly is noted. Gallbladder: No gallstones, masses, sonographic Brice's sign, or pericholecystic fluid. The wall of the gallbladder is thickened and measures 6 mm in thickness. Common bile duct: No dilation (5 mm in diameter). No stones are identified in the imaged portion of the common bile duct. Pancreas: The visualized portion of the pancreas is unremarkable. Right kidney: The right kidney is normal in appearance and measures 11 cm in length. There is no renal cortical thinning. The renal cortical echogenicity is within normal limits. No renal lesion is seen. There is no hydronephrosis. No obvious stones are seen in the renal collecting system. Left kidney: The left kidney is normal in appearance and measures 12.9 cm in length. There is no renal cortical thinning. The renal cortical echogenicity is within normal limits. No renal lesion is seen. There is no hydronephrosis. No obvious stones are seen in the renal collecting system. Spleen: Unremarkable. No splenomegaly. The spleen measures 11.5 cm. Aorta: Obscured by intestinal gas. Inferior vena cava: Obscured by intestinal gas. Intraperitoneal space: There is a moderate amount of ascites. IMPRESSION: 1. Heterogeneous, nodular appearance of the liver, which is compatible with cirrhosis. 2. Moderate amount of ascites. PROCEDURE INFORMATION: Exam: US Duplex Artery and Vein of the Abdominal and/or Reproductive Organs. Complete Liver Exam date and time: 05/08/2019 12:11 AM Age: 58 years old Clinical history: Increased pain and distension, S/P paracentesis today; Additional info: Portal vein thrombus? TECHNIQUE: Imaging protocol: Real-time duplex ultrasound scan of the arterial and venous flow with color Doppler flow and spectral waveform analysis with image documentation. Complete duplex exam focused on the liver and portal vein. Duplex images required to evaluate vascular conditions. COMPARISON: CT ABD PELVIS W/O CONTRAST 05/07/2019 11:35:14 PM FINDINGS: Portal venous: Patent main and right and left portal veins. Normal waveforms. Hepatopetal (towards the liver) flow. The main portal vein measures 11 mm in diameter, which is within normal limits. Hepatic veins: The imaged portions of the hepatic veins are patent and demonstrate normal hepatofugal flow. Hepatic artery: The imaged portion of the hepatic artery is patent. IMPRESSION: Unremarkable duplex of the portal vein. No portal vein thrombosis. Electronically signed by: Sidney Wilcox On 05/08/2019 00:57:08 AM
[2019-05-08 01:04] LABS: INR 1.63; PROTHROMBIN TIME 19.1 SECONDS (11.8-14.0)
[2019-05-08 01:15] LABS: ATYPICAL LYMPH 2 % (0-5); LYMPHOCYTES 1 % (16-44); MONOCYTES 5 % (0-5); NEUTROPHILS 91 % (28-66); PLATELET CLUMPS SMALL AMT; PLATELET ESTIMATE NORMAL (NORMAL)
[2019-05-08 01:16] LABS: POLYCHROMASIA 1+
[2019-05-08] MEDS: ONDANSETRON 4MG/2ML VIAL (J2405) IV PRN (01:16)
[2019-05-08 01:26] LABS: ALBUMIN 2.9 GM/DL (3.2-5.2); ALT/SGPT 39 U/L (12-78); BILIRUBIN,TOTAL 1.9 MG/DL (0.2-1.0); BLOOD UREA NITROGEN 37 MG/DL (7-18); CALCIUM LEVEL 8.4 MG/DL (8.5-10.1); CARBON DIOXIDE LEVEL 25 MEQ/L (21-32); CHLORIDE LEVEL 103 MEQ/L (98-107); CREATININE FOR GFR 1.24 MG/DL (0.70-1.30); GLOMERULAR FILTRATION RATE > 60.0 (>56); GLUCOSE, FASTING 147 MG/DL (70-100); POTASSIUM SERUM 3.8 MEQ/L (3.5-5.1); SODIUM LEVEL 138 MEQ/L (136-145)
[2019-05-08] MEDS ORDERED: FUROSEMIDE 40 MG/4 ML VIAL (J1940) IV ONE (02:00)
[2019-05-08] MEDS ORDERED: MORPHINE 4 MG/ML 1ML VIAL/SYRINGE (J2270) IV PRN (02:00)
[2019-05-08] MEDS ORDERED: MORPHINE 2 MG/ML 1ML VIAL (J2270) IV ONE (02:00)
--- NOTE | 2019-05-08 03:02 | IPNPDOC ---
Date Seen The patient was seen on 05/08/19. Progress Note I was called to bedside at 3200by nursing due increased abdominal girth and abdominal pain. Nursing stated the abdominal exam changed from 1999 to 0 assessment. They stated he was stable abdominal exam was benign initially soft with no pain. I evaluated the patient at bedside, the abdomen appeared distended with increased typhanmy and dullness on percussion with hypoactive bowl sounds. Mr. White appeared unconformable and stated to be in significant amount of pain. BP was stable. Stat CT abdomen without contrast and liver Doppler ultrasound were ordered. Repeat labs were ordered such as CBC, BMP, PT/INR, and Ammonia levels. CT imaging was reviewed which showed moderate ascites and some amount of air in the abdomen and pelvis from recent paracentesis. When I reviewed the imaging, the Bladder appeared slightly distended and possible BPH as well. Because the patient still had significant ascites, a coude 16 Kerr was placed by me at bedside. Because of the air in the abdomen I did call Dr. Saldivar, to review the imaging to see if the patient is a surgical candidate, which he wasn't. Dr. Grey was called as well, for he was officially consulted. Both providers did recommend repeat CBC in the AM to trend the H/H to make sure the patient did not bleed into the abdomen for he has coag dysfunction. Due there being significant amount of ascites in the abdomen, repeat parenthesis today under ultrasound. Pain control with short acting opioids or benzos. 40mg Lasix IV x1 + morphine was ordered to provide relief. All of this convened to the patient and , who is in agreeable to the plan. VS, I&O, 24H, Fishbone Vital Signs/I&O Vital Signs Date Time Temp Pulse Resp B/P (MAP) Pulse Ox O2 Delivery O2 Flow Rate FiO2 05/08/19 01:25 20 05/08/19 00:00 98.3 134 126/75 (92) 95 Room Air I&O- Last 24 Hours up to 6 AM 05/08/19 06:00 Intake Total 1717 ml Output Total 500 ml Balance 1217 ml Laboratory Data 24H LABS Laboratory Tests 2 05/07/19 04:53: Nucleated Red Blood Cells % (auto) 0.2H, Neutrophils 86H, Band Neutrophils 2, Lymphocytes (Manual) 2L, Monocytes (Manual) 9H, Atypical Lymphocytes 1, Polyc hromasia 1+, Macrocytosis 1+, Platelet Estimate NORMAL, Prothrombin Time 22.4H, Prothromb Time International Ratio 1.99, Activated Partial Thromboplast Time 41.2H, Anion Gap 7L, Glomerular Filtration Rate > 60.0, Calcium Level 8.6, Magnesium Level 2.1, Total Bilirubin 2.1H, Direct Bilirubin 1.3H, Aspartate Amino Transf (AST/SGOT) 85H, Alanine Aminotransferase (ALT/SGPT) 42, Alkaline Phosphatase 44L, Total Protein 6.1L, Albumin 3.0L, Albumin/Globulin Ratio 0.97L 05/07/19 14:13: Bedside Glucose (Misc Panel) 116H 05/07/19 14:37: Prothrombin Time 19.3H, Prothromb Time International Ratio 1.66, Activated Partial Thromboplast Time 34.3 05/07/19 15:10: Body Fluid Specific [place] 1.015, Body Fluid WBC (Auto) 4131H, Body Fluid RBC (Auto) 2, Body Fluid Mononuclear Cells % Auto 21.4H, Fluid Polymorphonuclear Cell % Auto 78.6H, Body Fluid Glucose Source PERITONEAL, Body Fluid Glucose 85, Body Fluid Protein Source PERITONEAL, Body Fluid Total Protein 1.7, Body Fluid Albumin Source PERITONEAL, Body Fluid Albumin 0.8, Peritoneal Fluid Source PERITONEAL, Peritoneal Fluid Color YELLOW, Peritoneal Fluid Appearance HAZY 05/07/19 17:32: Bedside Glucose (Misc Panel) 96 05/08/19 00:44: Nucleated Red Blood Cells % (auto) 0.1H, Neutrophils 91H, Band Neutrophils 1, Lymphocytes (Manual) 1L, Monocytes (Manual) 5, Atypical Lymphocytes 2, Polychromasia 1+, Macrocytosis 2+, Platelet Estimate NORMAL, Clumped Platelets SMALL AMT, Prothrombin Time 19.1H, Prothromb Time International Ratio 1.63, Anion Gap 10, Glomerular Filtration Rate > 60.0, Calcium Level 8.4L, Total Bilirubin 1.9H, Aspartate Amino Transf (AST/SGOT) 75H, Alanine Aminotransferase (ALT/SGPT) 39, Alkaline Phosphatase 56, Ammonia 20, Total Protein 6.0L, Albumin 2.9L, Albumin/Globulin Ratio 0.94L CBC/BMP Laboratory Tests 05/07/19 04:53 05/08/19 00:44 Microbiology Microbiology 05/07/19 Acid Fast Stain, Received Pending 05/07/19 Mycobacterial Culture, Received Pending 05/07/19 Fungal Smear, Received Pending 05/07/19 Fungal Culture, Received Pending 05/07/19 Gram Stain, Received Pending 05/07/19 Body Fluid Culture, Received Pending 05/07/19 Anaerobic Culture, Received Pending 05/06/19 Blood Culture - Preliminary, Resulted No growth after 24 hours . All specim... 05/06/19 Blood Culture - Preliminary, Resulted No growth after 24 hours . All specim... 05/06/19 Gram Stain - Final, Resulted 05/06/19 Body Fluid Culture, Resulted Pending AVILA LIND DO May 08, 2019 03:02
[2019-05-08 05:09] LABS: HEMATOCRIT 25.6 % (42.0-52.0); HEMOGLOBIN 8.6 g/dl (13.5-17.5); MEAN CORPUSCULAR HEMOGLOBIN 37.6 pg (27.0-33.0); MEAN CORPUSCULAR HGB CONC 33.6 g/dl (32.0-36.5); MEAN CORPUSCULAR VOLUME 111.8 fl (80.0-96.0); PLATELET COUNT, AUTOMATED 168 10^3/uL (150-450); RED BLOOD COUNT 2.29 10^6/uL (4.30-6.10); WHITE BLOOD COUNT 16.4 10^3/uL (4.0-10.0)
[2019-05-08 05:31] LABS: ALBUMIN 2.8 GM/DL (3.2-5.2); BILIRUBIN,DIRECT 1.3 MG/DL (0.0-0.2); BILIRUBIN,TOTAL 2.1 MG/DL (0.2-1.0); CALCIUM LEVEL 8.4 MG/DL (8.5-10.1); CREATININE FOR GFR 1.44 MG/DL (0.70-1.30); GLOMERULAR FILTRATION RATE 53.5 (>56); POTASSIUM SERUM 3.9 MEQ/L (3.5-5.1); TOTAL PROTEIN 6.3 GM/DL (6.4-8.2)
[2019-05-08 05:37] LABS: LYMPHOCYTES 2 % (16-44); MONOCYTES 6 % (0-5); NEUTROPHILS 90 % (28-66); PLATELET ESTIMATE NORMAL (NORMAL); POLYCHROMASIA 1+
[2019-05-08 05:38] LABS: HYPOCHROMASIA 1+; PLATELET CLUMPS SMALL AMT; SMUDGE CELLS 1+; TOXIC VACUOLATION 1+
[2019-05-08] MEDS: TAMSULOSIN 0.4 MG CAP PO SCH (05:57)
[2019-05-08] MEDS: SLF 3 ML SYR IV SCH ×3 (05:57→21:34)
[2019-05-08] MEDS: KETOROLAC 30 MG/ML VIAL (J1885) IV PRN (06:54)
[2019-05-08] MEDS ORDERED: MEROPENEM INJ 2 GM in NS 100 ML IV SCH (07:45)
[2019-05-08] MEDS: SIMETHICONE 40MG/0.6ML DROPS 30ML PO SCH ×3 (08:00→18:10)
[2019-05-08] MEDS ORDERED: prednisoLONE (PRELONE) 15MG/5ML SYRUP UDC PO SCH (09:00)
[2019-05-08] MEDS: MULTIVITAMINS/MINERALS THERAP 1 TAB PO SCH (09:37)
[2019-05-08] MEDS: THIAMINE 100 MG TAB PO SCH ×2 (09:37→21:33)
[2019-05-08] MEDS: MEROPENEM INJ 1 GM in IV 1 EA IV SCH ×2 (09:37→21:34)
[2019-05-08] MEDS: FOLIC ACID 1 MG TAB PO SCH (09:37)
--- NOTE | 2019-05-08 09:50 | REP ---
KUB: Single view. HISTORY: Rule out perforated viscus. FINDINGS: Monitoring electrodes overlie the abdomen. There are loops of air-filled mildly prominent small bowel in the left central abdomen. There is a somewhat dilated loop of air-filled right colon. There is evidence of ascitic fluid lateral to the colon. Flank stripes are intact. Psoas margins are obscured. No mass or pathologic calcification is seen. No free air seen on this single supine abdominal film. Bowel gas pattern is unchanged from the lifts and cranes inspector view done the previous evening for the abdominal CT study. Electronically Signed by Griffin Galicia MD 05/08/2019 05:13 P
[2019-05-08] MEDS: oxyCODONE 5MG TAB PO PRN ×3 (12:57→22:18)
--- NOTE | 2019-05-08 14:16 | IPN ---
DATE: 05/08/2019 Patient is afebrile with no complaints of chills overnight, but complains of severe pain in the bilateral lower quadrants, right upper quadrant of the abdomen. Repeat CT abdomen showed consolidation with air bronchograms in the left lower lobe which has developed since prior CT. Dependent atelectasis in the right lower lobe. There is a small density, pericardial effusion, fluid in the esophagus which can be seen with reflux, nodular liver, small free air related to recent paracentesis, could not exclude perforated viscus, cirrhotic liver, moderate amount of ascites without significant change from prior CT on 04/25. Small periumbilical hernia containing fluid and gas. The patient was evaluated clinically, was found to be stable and remained in PCU. Systolic pressure was 90 and albumin infusions were ordered. The patient's red count has increased to 16,000 due to concerns of worsening intra-abdominal infection. The patient's ceftriaxone was changed to IV meropenem which is dosed renally due to acute kidney injury of 1.44, lactic acid was elevated at 6. Per evening resident, the patient's CT was evaluated by general surgery who felt that there was no acute abdomen that required any surgical intervention. Per Dr. Grey check serial abdominal films regarding the free air. Recheck for a diagnostic paracentesis and broaden the antibiotics. VITAL SIGNS: Temperature 97.7, pulse 115, respiratory rate 17, blood pressure 100/64, 97% on room air. Generally, patient is awake, alert, oriented to person, place and time. He is anicteric with no jaundice. Dry mucous membranes, appears cachectic with bitemporal wasting. Lungs are diminished with fine crackles at the right base. Heart S1, S2 sinus tachycardia. Abdomen is distended with nodular hepatosplenomegaly noted on the right. Doughy in appearance with positive fluid wave and tympanitic on exam. Extremities no pitting edema. LABORATORY DATA: Notable or creatinine of 1.44, lactic of 6.1, white count is 15, hemoglobin of 8.6, hematocrit of 25. Microbiology: On 05/07 fluid no organism seen. Previous body fluid on 05/06 E. Coli, which is sensitive to ertapenem and ceftriaxone, resistant to cefazolin, ampicillin, ampicillin-sulbactam, sensitive to Levaquin. ASSESSMENT/PLAN: This is a 58-year-old male with history of alcoholism, chronic diastolic failure, alcoholic liver cirrhosis with ascites and pleural effusions, hypertension, smoker, who presents with abdominal pain. CURRENT ISSUES: 1. Spontaneous bacterial peritonitis (SBP) status post ceftriaxone, now broadly covered with meropenem, renally dosed. 2. Acute kidney injury secondary to third spacing. Currently on albumin infusions. We have discontinued the patient's Toradol as a potential reason for acute kidney injury. Currently on oxycodone for pain control. 3. Alcoholic liver cirrhosis. CT showed ascites and pleural effusions on Dr. Grey has been consulted and recommended broader spectrum antibiotics. Repeat diagnostic paracentesis. 4. Macrocytic anemia due to alcohol abuse. No acute GI bleed noted. 5. Chronic diastolic heart failure secondary to hypertensive heart disease. Blood pressure medications have been held due to current low blood pressure from decompensated liver failure. 6. Decompensated liver disease with recurrent ascites. Diagnostic paracentesis in the morning. 7. Lactic acidosis due to decreased perfusion from sepsis due to SBP. Currently on IV meropenem. Transfusions with albumin. 8. Deep vein thrombosis (DVT) prophylaxis with compression stockings. Pain control with IV morphine and oxycodone . Avoid acetaminophen products. 9. Urine retention, on Flomax. Kerr catheter and post void residual checks. MTDD
[2019-05-08 15:05] LABS: APPEARANCE, BODY FLUID CLOUDY (CLEAR); PERITONEAL FL COLOR YELLOW (COLORLESS); SOURCE, BODY FLUID PERITONEAL; SPEC. GRAVITY BODY FLUIDS 1.019 (NOT ESTABLISHED)
[2019-05-08 15:15] LABS: SOURCE, BODY FLUID ALBUMIN PERITONEAL
[2019-05-08 15:19] LABS: SOURCE, BODY FLUID GLUCOSE PERITONEAL; SOURCE, BODY FLUID TOT PROTEIN PERITONEAL; TOTAL PROTEIN, BODY FLUID 2.5 G/DL (NOT ESTABLISHED)
--- NOTE | 2019-05-08 22:26 | CR.PDOC ---
General Date of Consultation: May 07, 2019 Referring Provider: BEN HANDLEY MD Attending Physician: DANELLE WETZEL MD Consultation Primary physician/ hospitalist: - Reason for consult: -Liver cirrhosis and SBP HPI: 65-year-old male with HTN, chronic heavy alcohol use, alcoholic liver cirrhosis (not following with any guest experience specialist/braille transcriber), presented with complaints of worsening abdominal pain. Patient had diagnostic paracentesis and was noted to have SBP and started on antibiotics. GI was consulted for further evaluation. Patient is examined on 05/07/2019. Patient is alert, oriented 3 when examined. Patient reports noticing progressively worsening abdominal di stention with Aching, 6/10 in severity, abdominal pain for 4 weeks, associated with loss of appetite and poor oral intake. Patient reports drinking daily, 4-6 beers (but as per other reports he is to drink more than that). As per the records. Patient was also noted to have spells of confusion at home. Patient's reports some unintentional weight loss, and was not sure if it was related to his poor diet and his work schedule Pertinent negative GI symptoms: Patient denies fever, sick contacts, recent travel, nausea, vomiting, diarrhea. No history of hematemesis, melena or hematochezia. Review of Systems: GI: as stated above CVS: No chest pain, No palpitations, No leg swelling. RS: No Shortness of breath, No Wheezing, no cough SEEDLING SORTER: No dizziness, No motor weakness, No sensory problems Hematology: No bruising, No gum bleeding, Musculoskeletal: No joint pain, ambulating well. Skin: No rash : No hematuria, No burning sensation of the urine ENT: No ear discharge/ pain, No dysphagia. Eyes: No photophobia. Jaundice Home medications: reviewed. Antithrombotic agents: -None Medical h/o: As above. Surgical h/o: None on abdomen. Social h/o: Alcohol: -. Heavy alcohol use as above for many years, smoking:. Denies, IVDA/ drugs: Denies. Family h/o of GI cancers - None Prior Endoscopies: None Prior GI evaluations: - None in [facility] Exam: Vitals: reviewed General: Alert and oriented x 3, not in distress HEENT: NO pallor, no icterus. Normal oropharynx, NO cervical lymph nodes. Chest: symmetric with bilateral clear air entry, CVS: S1, S2 heard, normal, no murmurs . Abdomen: non-distended, no surgical scars, soft, non-tender, no palpable masses, normal bowel sounds heard. Rectal exam: Patient refused / Deferred at this time in view of scheduled colonoscopy. Extremities: no pedal edema, pulses palpable. SEEDLING SORTER: no focal motor or sensory deficits. Moves all extremities Skin: no rash. Labs: reviewed. Imaging: reviewed. Impression: - Abdominal distention and abdominal pain, in patient with chronic heavy alcohol use and diagnostic paracentesis - revealed SBP. - Liver cirrhosis likely etiology alcohol, CTP C, MELD Na-19, decompensated, with SBP, Mild encephalopathy, no prior EGD to evaluate for esophageal varices, and no liver mass on last imaging ( CT abdomen done in this admission). Poor prognosis due to SBP. - Loss of appetite, unintentional weight loss likely related alcohol related illness. Needs further evaluation. Recommendations: - Patient educated about the test results, possible differential diagnoses and All questions answered. - Continue Antibiotics for SBP -- Ceftriaxone and give albumin 1.5gm/ Kg body weight on day 1 and 1gm/ Kg Body weight on day 3. - Thiamine, folic acid and multivitamin. - Diet as tolerated with sodium restriction. - Give oral or rectal lactulose for mild encephalopathy. - Avoid NSAIDs, long acting opioids, and Benzodiazepines. - If clinical symptoms of abdominal pain and distention does not improve consider repeat diagnostic tap with fluid cultures and Cell counts on day 3-4 of the antibiotic therapy. - Hold diuretics and beta- blockers for now until the acute issue of SBP is controlled. - Elective EGD and Colonoscopy discussed with patient and further evaluation as out patient for weight loss. - Poor prognosis due to decompensated liver cirrhosis and SBP. Plan of care discussed with patient and primary team. Patient verbalized understanding and agreed with the plan. Addendum 05/08/2019: Patient underwent therapeutic paracentesis yesterday due to persistent abdominal distention and discomfort. Fluid analysis review-- improving SBP. Patient did received albumin. Over night patient is noted with worsening abdominal distention and night resident taking care of the patient call me to review the findings. CT scan abdomen report reviewed in morning - noted small amount of free air in abdomen with moderate ascites. Recommendations: -- Keep patient NPO -- broaden the spectrum of antibiotics. -- Obtain abdominal xray in evening to check if worsening free air. -- Consider rectal lactulose. -- For severe pain consider low dose short acting opioids. -- Avoid NSAIDs -- consider repeating the diagnostic paracentesis in 1-2 days to obtain cultures and cellcounts. -- Follow with surgery recommendations. plan of care discussed with hospitalist physician. Vital Signs/I&O Vital Signs Date Time Temp Pulse Resp B/P (MAP) Pulse Ox O2 Delivery O2 Flow Rate FiO2 05/08/19 06:00 122 90/58 05/08/19 04:00 98.9 18 95 Room Air I&O- Last 24 Hours up to 6 AM 05/08/19 06:00 Intake Total 2637 ml Output Total 1200 ml Balance 1437 ml Laboratory Data Labs 24H Laboratory Tests 2 05/07/19 14:13: Bedside Glucose (Misc Panel) 116H 05/07/19 14:37: Prothrombin Time 19.3H, Prothromb Time International Ratio 1.66, Activated Partial Thromboplast Time 34.3 05/07/19 15:10: Body Fluid Specific [place] 1.015, Body Fluid WBC (Auto) 4131H, Body Fluid RBC (Auto) 2, Body Fluid Mononuclear Cells % Auto 21.4H, Fluid Polymorphonuclear Cell % Auto 78.6H, Body Fluid Glucose Source PERITONEAL, Body Fluid Glucose 85, Body Fluid Protein Source PERITONEAL, Body Fluid Total Protein 1.7, Body Fluid Albumin Source PERITONEAL, Body Fluid Albumin 0.8, Peritoneal Fluid Source PERITONEAL, Peritoneal Fluid Color YELLOW, Peritoneal Fluid Appearance HAZY 05/07/19 17:32: Bedside Glucose (Misc Panel) 96 05/08/19 00:44: Nucleated Red Blood Cells % (auto) 0.1H, Neutrophils 91H, Band Neutrophils 1, Lymphocytes (Manual) 1L, Monocytes (Manual) 5, Atypical Lymphocytes 2, Polychromasia 1+, Macrocytosis 2+, Platelet Estimate NORMAL, Clumped Platelets SMALL AMT, Prothrombin Time 19.1H, Prothromb Time International Ratio 1.63, Anion Gap 10, Glomerular Filtration Rate > 60.0, Calcium Level 8.4L, Total Bilirubin 1.9H, Aspartate Amino Transf (AST/SGOT) 75H, Alanine Aminotransferase (ALT/SGPT) 39, Alkaline Phosphatase 56, Ammonia 20, Total Protein 6.0L, Albumin 2.9L, Albumin/Globulin Ratio 0.94L 05/08/19 04:39: Nucleated Red Blood Cells % (auto) 0.2H, Neutrophils 90H, Band Neutrophils 2, Lymphocytes (Manual) 2L, Monocytes (Manual) 6H, Polychromasia 1+, Macrocytosis 2+, Platelet Estimate NORMAL, Clumped Platelets SMALL AMT, Anion Gap 7L, Glomerular Filtration Rate 53.5L, Calcium Level 8.4L, Total Bilirubin 2.1H, Aspartate Amino Transf (AST/SGOT) 77H, Alanine Aminotransferase (ALT/SGPT) 42, Alkaline Phosphatase 64, Total Protein 6.3L, Albumin 2.8L, Albumin/Globulin Ratio 0.80L, Hypochromasia 1+, Toxic Vacuolation 1+, Smudge Cells 1+, Direct Bilirubin 1.3H CBC/BMP Laboratory Tests 05/08/19 00:44 05/08/19 04:39 Microbiology Microbiology 05/07/19 Acid Fast Stain, Received Pending 05/07/19 Mycobacterial Culture, Received Pending 05/07/19 Fungal Smear, Received Pending 05/07/19 Fungal Culture, Received Pending 05/07/19 Gram Stain, Received Pending 05/07/19 Body Fluid Culture, Received Pending 05/07/19 Anaerobic Culture, Received Pending 05/06/19 Blood Culture - Preliminary, Resulted No growth after 24 hours . All specim... 05/06/19 Blood Culture - Preliminary, Resulted No Growth after 48 hours. All Specime... 05/06/19 Gram Stain - Final, Resulted 05/06/19 Body Fluid Culture - Preliminary, Resulted Escherichia Coli Allergies Coded Allergies: No Known Allergies (Unverified , 07/22/15) Home Medications Scheduled Lisinopril (Lisinopril) 10 Mg Tablet, 10 MG PO DAILY, (Reported) DANELLE WETZEL MD May 08, 2019 07:20
--- NOTE | 2019-05-08 22:30 | REPVR ---
PROCEDURE INFORMATION: Exam: XR Abdomen, 3 or More Views Exam date and time: 05/08/2019 10:06 PM Age: 58 years old Clinical history: Other: Post paracentesis; Additional info: Stat read- abd pain distention R/O free air TECHNIQUE: Imaging protocol: XR of the abdomen. Frontal supine, upright and one or more additional views. Views: 3 or more views. COMPARISON: CR Abdomen,Flat Plate KUB 05/08/2019 8:21 AM FINDINGS: Lower thorax: Atelectasis right lower lobe. Gastrointestinal tract: Air-fluid levels in the small bowel consistent with an ileus or early small bowel obstruction. No significant bowel dilatation at this time. Intraperitoneal space: Groundglass density in the abdomen consistent with ascites. Bones/joints: Unremarkable for age. IMPRESSION: 1. Air-fluid levels in the small bowel consistent with an ileus or early small bowel obstruction. No significant bowel dilatation at this time. 2. Groundglass density in the abdomen consistent with ascites. Electronically signed by: Gerson Roy On 05/08/2019 22:29:42 PM
[2019-05-09] VITALS (23 sets, daily range): BP systolic 74–119; BP diastolic 43–65
[2019-05-09] MEDS: DOCUSATE SODIUM 100 MG CAP PO SCH ×2 (00:54→09:03)
[2019-05-09] MEDS: MIRALAX *UNIT DOSE* 17GM PACKET PO SCH ×2 (00:54→09:04)
[2019-05-09] MEDS ORDERED: MORPHINE 2 MG/ML 1ML VIAL (J2270) IV ONE ×2 (01:45→21:00)
[2019-05-09] MEDS: oxyCODONE 5MG TAB PO PRN ×3 (04:31→17:53)
[2019-05-09] MEDS: SLF 3 ML SYR IV SCH ×3 (04:34→22:00)
[2019-05-09 05:39] LABS: BASO % 0.2 % (0.0-1.0); EOS # 0.1 10^3/uL (0.0-0.5); EOS % 0.3 % (0.0-3.0); HEMATOCRIT 24.3 % (42.0-52.0); HEMOGLOBIN 8.5 g/dl (13.5-17.5); LYMPH # 0.9 10^3/uL (1.5-5.0); LYMPH % 5.2 % (24.0-44.0); MEAN CORPUSCULAR HEMOGLOBIN 38.3 pg (27.0-33.0); MEAN CORPUSCULAR VOLUME 109.5 fl (80.0-96.0); MONO # 1.8 10^3/uL (0.0-0.8); MONO % 10.6 % (0.0-5.0); NEUTROPHILS # 13.6 10^3/uL (1.5-8.5); NEUTROPHILS % 80.8 % (36.0-66.0); PLATELET COUNT, AUTOMATED 146 10^3/uL (150-450); RED BLOOD COUNT 2.22 10^6/uL (4.30-6.10); WHITE BLOOD COUNT 16.8 10^3/uL (4.0-10.0)
[2019-05-09 06:05] LABS: ALBUMIN 3.2 GM/DL (3.2-5.2); BILIRUBIN,DIRECT 1.4 MG/DL (0.0-0.2); BILIRUBIN,TOTAL 2.4 MG/DL (0.2-1.0); CALCIUM LEVEL 8.7 MG/DL (8.5-10.1); CREATININE FOR GFR 2.57 MG/DL (0.70-1.30); GLOMERULAR FILTRATION RATE 27.4 (>56); POTASSIUM SERUM 4.1 MEQ/L (3.5-5.1); TOTAL PROTEIN 6.1 GM/DL (6.4-8.2)
[2019-05-09] MEDS ORDERED: NS 1,000 ML IV ONE ×3 (08:00→19:00)
[2019-05-09] MEDS: SIMETHICONE 40MG/0.6ML DROPS 30ML PO SCH ×3 (08:00→18:55)
--- NOTE | 2019-05-09 08:39 | PHACANCOPD ---
PHARMACY VANCOMYCIN DOSING Pt Demographics Demographics Patient Age:58 , Weight:59.100 , Gender: male Adjusted Body Weight Date: 05/09/19, Adjusted Body Weight: Kg Events Past 24 Hours Events Past 24 Hours: YES: Elevation in WBC Vancomycin Vancomycin Target Ranges: 15-20 mcg/ml Vancomycin Load Y/N: Yes Load Dose Date Time Vancomycin Load Dose: 1250 MG Date: 05/09/19 Time: 0900 Vancomycin Dose Date: 05/09/19. Current Vancomycin Dose: [1 GM IV Q24H] Intermittent Dosing?: No Labs Labs Item Value Date Time White Blood Count 16.4 10^3/uL H 05/08/19 0439 White Blood Count 16.8 10^3/uL H 05/09/19 0519 White Blood Count 14.9 10^3/uL H 05/08/19 0044 White Blood Count 10.5 10^3/uL H 05/07/19 0107 Lactic Acid Followup at 4 Hours 3.8 MMOL/L *H 05/08/19 1514 Lactic Acid Level 6.1 MMOL/L *H 05/08/19 0956 Micro Microbiology 05/08/19 Acid Fast Stain, Received Pending 05/08/19 Mycobacterial Culture, Received Pending 05/08/19 Fungal Smear, Received Pending 05/08/19 Fungal Culture, Received Pending 05/08/19 Gram Stain - Final, Resulted 05/08/19 Body Fluid Culture, Resulted Pending 05/08/19 Anaerobic Culture, Resulted Pending 05/07/19 Acid Fast Stain, Received Pending 05/07/19 Mycobacterial Culture, Received Pending 05/07/19 Fungal Smear, Received Pending 05/07/19 Fungal Culture, Received Pending 05/07/19 Gram Stain - Final, Resulted 05/07/19 Body Fluid Culture, Resulted Pending 05/07/19 Anaerobic Culture, Resulted Pending 05/06/19 Blood Culture - Preliminary, Resulted No Growth after 72 hours. All specime... 05/06/19 Blood Culture - Preliminary, Resulted No Growth after 72 hours. All specime... 05/06/19 Gram Stain - Final, Complete 05/06/19 Body Fluid Culture - Final, Complete Escherichia Coli Enterococcus Raffinosus Creatinine Clearance Date:05/09/19. Creatinine Clearance: [~26 ml/min]. Assessment and Plan Maintaining Current Dose?: Yes Reason for dose change: No Dose Change Pharmacist Note Pharmacist Note Date: 05/09/19. Pharmacist note: Pharmacy consulted for Vancomycin dosing of SBP in 58 year old male, not improving on Rocephin or Meropenem. Patients WBC is rising despite abx therapy. No previous MRSA or vanco history here at [facility]. We'll load him with 1250 mg and follow with 1 gm iv q24h. Pharmacy will continue to monitor and make adjustments as needed. [facility] May 09, 2019 08:39
[2019-05-09] MEDS ORDERED: VANCOMYCIN HCL 750 MG, VIAL MATE ADAPTER 1 EACH in D5W 250 ML IV ONE ×2 (09:00→10:00)
[2019-05-09] MEDS ORDERED: VANCOMYCIN HCL 500 MG in D5W MINI-BAG PLUS 100 ML IV ONE (09:00)
[2019-05-09] MEDS: FOLIC ACID 1 MG TAB PO SCH (09:03)
[2019-05-09] MEDS: MULTIVITAMINS/MINERALS THERAP 1 TAB PO SCH (09:03)
[2019-05-09] MEDS: TAMSULOSIN 0.4 MG CAP PO SCH (09:03)
--- NOTE | 2019-05-09 09:24 | REP ---
KUB: Single view. History: Abdomen pain and distension. Status post paracentesis. Rule out perforation. Comparison is made with yesterday's chest x-ray May 08, 2019 which shows a small amount of free air under the right hemidiaphragm. This was visible by CT study on 05/07/2019. Findings: Dilated loops of large and small bowel persist in the central abdomen consistent with ileus. Bowel gas pattern is not significantly changed. There is a subtle gas shadow in the paraduodenal region of the right upper quadrant which could be the recently identified peritoneal air. No other evidence of free air is seen on this supine radiograph. Electronically Signed by Griffin Galicia MD 05/09/2019 05:37 P
--- NOTE | 2019-05-09 10:30 | REP ---
Ultrasound-guided paracentesis The procedure was performed under the direct supervision of Dr. Angela. The risks and benefits of the procedure were explained to the patient and informed consent was obtained. The largest pocket of fluid was localized in the right flank using ultrasound guidance. The skin was prepped and draped in a sterile fashion. 1% lidocaine was used as a local anesthetic. Using ultrasound guidance an 8-[place] multi side-hole catheter was inserted using trocar technique. 900 ml of yellow fluid was withdrawn with a sample sent to the lab for analysis. The patient tolerated the procedure well and there were no immediate complications. After the appropriate amount of monitored convalescence the patient was discharged from the department. Electronically Signed by CHARLIE Odom 05/08/2019 04:04 P Electronically Signed by Alejandro Angela MD 05/09/2019 10:20 A
[2019-05-09] MEDS: MEROPENEM INJ 1 GM in IV 1 EA IV SCH ×2 (11:06→20:49)
[2019-05-09] MEDS ORDERED: LIDOCAINE 2% 5ML JELLY UROJET TOP ONE (11:30)
--- NOTE | 2019-05-09 11:31 | IPN ---
DATE: 05/09/2019 The patient complains of increasing abdominal distention status post paracentesis yesterday, afebrile, no chills. No complaints of diarrhea. The patient has had some urine retention, about 300 mL. Urine output overnight was minimal. Creatinine this morning is significantly worsened. Unable to place a Kerr catheter yesterday despite four attempts. Temperature 97, pulse 116, respiratory rate 20, blood pressure 108/56, 96% on room air. Generally, patient is awake, alert, oriented times three, and answering questions appropriately. He appears cachetic, older than his stated age, with bitemporal wasting and exposed ribs. Very mild jaundice. No scleral icterus. Dry mucous membranes. Poor dentition. Lungs are clear to auscultation. No wheezing, rales or rhonchi. Heart S1, S2. Sinus tachycardia. Abdomen is doughy, distended, positive bowel sounds, tender diffusely. No rebound or guarding. Extremities: No pitting edema. LABORATORY DATA: White count 16.8, hemoglobin 8.5, hematocrit 24.3, platelet count 146, with previous platelet count of 168. Sodium 134, potassium 4.1, chloride 100, bicarbonate 26, BUN 62, creatinine 2.57, glucose 106, total bilirubin 2.4, direct bilirubin 1.4, AST 59, ALT 34, alkaline phosphatase 58. Abdominal x-ray on 05/09/2019 - Dilated loops of bowel persist consistent with ileus, subtle shadow right upper quadrant which could be the recently identified peritoneal air, no other evidence of free air. ASSESSMENT/PLAN: This is a 58-year-old alcoholic with alcoholic liver disease who presented with increasing abdominal distention and found to have spontaneous bacterial peritonitis (SBP) and treated with IV ceftriaxone with worsening abdominal pain and increasing white count with no fever. The patient is now broadly covered with meropenem which is renally dosed. Repeat abdominal films show free air consistent with recent paracentesis. Acute kidney injury secondary to possible hepatorenal syndrome, Toradol use. The patient had been given albumin infusions and has been treated with antibiotics for SBP which have been renally dosed. Currently on oxycodone as needed for pain control. Most likely related to urine retention. The patient is currently on Flomax. Despite four attempts at Kerr catheter placement, unable to relieve the bladder outflow tract. Obstruction. Urologist has been consulted for Kerr catheter placement. Renal ultrasound to rule out hydronephrosis. Alcoholic liver cirrhosis. CT showed ascites and pleural effusions. Dr. Grey has been consulted. Currently monitoring patient's bilirubin and is on broad spectrum antibiotics with meropenem. Anemia secondary to chronic alcohol abuse, microcytic, on folate and thiamine supplements. Chronic diastolic heart failure secondary to hypertensive heart disease. Blood pressure medications have been held due to low blood pressure and decompensated liver disease with recurrent ascites. The patient underwent two paracenteses. Currently being treated for SBP. Lactic acidosis due to decreased perfusion from sepsis and SBP. Currently on IV meropenem. Improving. Deep vein thrombosis (DVT) prophylaxis with compression stockings. Pain control with oxycodone . Urine retention, on Flomax. Kerr catheter attempts times four without improvement. Check renal ultrasound to rule out hydronephrosis. Urology consult for Kerr placement. JEAN CLAUDE
[2019-05-09] MEDS ORDERED: NS 1,000 ML IV SCH (13:00)
[2019-05-09] MEDS ORDERED: LIDOCAINE 1% MDV 20ML VIAL As Ordered ONE (16:18)
--- NOTE | 2019-05-09 16:38 | SMCUROLCON ---
Urology Consultation General Date of Consultation 05/09/19 Reason For Consultation This patient is seen for Abdominal Pain, Ams, Sirs. History of Present Illness This is a 58 y/o M w/ a PMH significant for alcoholic cirrhosis, HTN, and CHF, admitted for spontaneous bacterial peritonitis, and now found to be in urinary retention. Per report several attempts were made to place catheters yesterday w/o success. He had 0cc of UOP recorded from yesterday and today. There is no known history of urinary retention previously. The patient notes diffuse abdominal pain, but it is difficult to determine if this is due to bladder distention. It has been difficult to determine the accuracy of bladder scanners due to the patient's ascites. Past Medical History Medical History see HPI Surgical Hstory left shoulder surgery Medications Current Medications Current Medications Medications (Trade) Dose Ordered Sig/Ritchie Route PRN Reason Start Time Stop Time Status Last Admin Dose Admin Acetaminophen (Tylenol Tab) 650 mg Q4H PRN PO PAIN OR FEVER 05/06/19 03:30 05/06/19 16:24 DC Al Hydrox/Mg Hydrox/Simethicone (Mylanta) 30 ml DAILY PRN PO DYSPEPSIA 05/06/19 03:30 05/07/19 09:46 Ceftriaxone Sodium 1 gm/ Dextrose 50 ml @ 100 mls/hr Q12H IV 05/06/19 09:00 05/08/19 07:35 DC 05/07/19 20:07 Ciprofloxacin 400 mg/IV Miscellaneous Supplies 200 ml @ 200 mls/hr Q12H IV 05/06/19 06:00 05/06/19 08:05 DC 05/06/19 06:14 Docusate Sodium (Colace) 100 mg BID PO 05/08/19 21:00 05/09/19 09:03 Enoxaparin Sodium (Lovenox) 30 mg DAILY SC 05/06/19 09:00 05/06/19 18:17 DC 05/06/19 09:20 Folic Acid (Folic Acid) 1 mg DAILY PO 05/06/19 09:00 05/09/19 09:03 Home Med (Med Rec Complete!) ASDIRECTED XX 05/06/19 02:45 05/06/19 02:42 DC Ketorolac Tromethamine (ToRADol) 15 mg Q8H IV 05/06/19 17:00 05/07/19 00:51 DC 05/06/19 16:54 Ketorolac Tromethamine (ToRADol) 15 mg Q8H PRN IV pain 05/07/19 01:00 05/08/19 07:42 DC 05/08/19 06:54 Lorazepam (Ativan) 2 mg ASDIRECTED PRN PO SEE PROTOCOL 05/06/19 03:30 05/07/19 08:40 DC Meropenem 1 gm/IV Miscellaneous Supplies 50 ml @ 100 mls/hr Q12H IV 05/08/19 09:00 05/09/19 11:06 Meropenem 2 gm/ Sodium Chloride 100 ml @ 200 mls/hr Q8H IV 05/08/19 07:45 05/08/19 08:25 DC Morphine Sulfate (Morphine Sulfate Inj) 2 mg Q2HP PRN IV PAIN 05/08/19 02:00 05/09/19 01:59 DC Multivitamins (Theragram-M) 1 tab DAILY PO 05/06/19 09:00 05/09/19 09:03 Ondansetron HCl (ZOFRAN INJection) 4 mg Q6HP PRN IV NAUSEA OR VOMITING 05/06/19 08:45 05/08/19 01:16 Oxycodone HCl (Roxicodone, Oxyir) 5 mg Q4HP PRN PO PAIN 05/08/19 07:45 05/09/19 15:20 Oxycodone HCl (Roxicodone, Oxyir) 5 mg Q8HP PRN PO PAIN 05/07/19 08:45 05/08/19 08:23 DC 05/07/19 17:29 Piperacillin Sod/ Tazobactam Sod 3.375 gm/Dextrose 50 ml @ 50 mls/hr Q12H IV 05/06/19 12:00 05/06/19 08:05 DC Piperacillin Sod/ Tazobactam Sod 3.375 gm/Dextrose 50 ml @ 50 mls/hr Q6H IV 05/06/19 12:00 05/06/19 08:11 DC Polyethylene Glycol (Miralax) 1 pkt BID PO 05/08/19 21:00 05/09/19 09:04 Potassium Chloride 10 meq/ IV Miscellaneous Supplies 100 ml @ 100 mls/hr 0000,2300 IV 05/06/19 23:00 05/07/19 04:00 DC 05/07/19 00:26 Prednisolone (Prelone Syrup) 40 mg DAILY PO 05/08/19 09:00 05/08/19 01:57 DC Simethicone (Mylicon) 20 mg WM PO 05/08/19 08:00 05/09/19 14:15 Sodium Chloride 1,000 ml @ 100 mls/hr Q10H IV 05/06/19 05:45 05/06/19 07:06 DC 05/06/19 06:14 Sodium Chloride 1,000 ml @ 1,000 mls/hr Q1H IV 05/09/19 13:00 05/09/19 12:53 DC 05/09/19 12:49 Sodium Chloride (Saline Lock Flush) 2 ml ASDIRECTED PRN IV SEE LABEL COMMENTS 05/07/19 14:45 Sodium Chloride (Saline Lock Flush) 2 ml SLF IV 05/07/19 22:00 05/09/19 14:06 Spironolactone (Aldactone) 100 mg DAILY@2100 PO 05/07/19 21:00 05/08/19 05:28 DC 05/08/19 01:25 Tamsulosin HCl (Flomax) 0.4 mg DAILY PO 05/08/19 06:00 05/09/19 09:03 Thiamine HCl (Thiamine HCl) 100 mg BID PO 05/06/19 03:34 05/08/19 21:01 DC 05/08/19 21:33 Vancomycin HCl 1000 mg/IV Miscellaneous Supplies 1 each/ Dextrose 270 ml @ 270 mls/hr Q24H IV 05/10/19 09:00 05/15/19 09:59 Allergies Allergies: Coded Allergies: No Known Allergies (Unverified , 07/22/15) Review of Systems General: Reports: ROS Unobtainable Physical Examination General Exam: Mild Distress, Other (confuse) ENT EXAM: Atraumatic Chest Exam: Normal air movement Heart Exam: Rate Normal Abdomen Exam: Soft, Tenderness Skin Exam: Nl turgor and temperature Psych Exam: Anxiety Vital Signs/I&O Vital Signs Date Time Temp Pulse Resp B/P (MAP) Pulse Ox O2 Delivery O2 Flow Rate FiO2 05/09/19 16:21 97.5 119 18 94 Room Air 05/09/19 14:05 119/56 I&O- Last 24 Hours up to 6 AM 05/09/19 06:00 Intake Total 420.0 ml Output Total 0 ml Balance 420.0 ml Laboratory Data 24H Labs Laboratory Tests 2 05/09/19 00:51: Bedside Glucose (Misc Panel) 118H 05/09/19 05:19: Immature Granulocyte % (Auto) 2.9, Neutrophils (%) (Auto) 80.8H, Lymphocytes (%) (Auto) 5.2L, Monocytes (%) (Auto) 10.6H, Eosinophils (%) (Auto) 0.3, Basophils (%) (Auto) 0.2, Neutrophils # (Auto) 13.6H, Lymphocytes # (Auto) 0.9L, Monocytes # (Auto) 1.8H, Eosinophils # (Auto) 0.1, Basophils # (Auto) 0.0, Nucleated Red Blood Cells % (auto) 0.3H, Anion Gap 8, Glomerular Filtration Rate 27.4L, Calciu m Level 8.7, Total Bilirubin 2.4H, Direct Bilirubin 1.4H, Aspartate Amino Transf (AST/SGOT) 59H, Alanine Aminotransferase (ALT/SGPT) 34, Alkaline Phosphatase 58, Total Protein 6.1L, Albumin 3.2, Albumin/Globulin Ratio 1.10 05/09/19 11:21: Ammonia 22 05/09/19 12:58: Lactic Acid Level 8.1*H CBC/BMP Laboratory Tests 05/09/19 05:19 Microbiology Microbiology 05/08/19 Acid Fast Stain, Received Pending 05/08/19 Mycobacterial Culture, Received Pending 05/08/19 Fungal Smear, Received Pending 05/08/19 Fungal Culture, Received Pending 05/08/19 Gram Stain - Final, Resulted 05/08/19 Body Fluid Culture, Resulted Pending 05/08/19 Anaerobic Culture, Resulted Pending 05/07/19 Acid Fast Stain, Received Pending 05/07/19 Mycobacterial Culture, Received Pending 05/07/19 Fungal Smear, Received Pending 05/07/19 Fungal Culture, Received Pending 05/07/19 Gram Stain - Final, Resulted 05/07/19 Body Fluid Culture, Resulted Pending 05/07/19 Anaerobic Culture, Resulted Pending 05/06/19 Blood Culture - Preliminary, Resulted No Growth after 72 hours. All specime... 05/06/19 Blood Culture - Preliminary, Resulted No Growth after 72 hours. All specime... 05/06/19 Gram Stain - Final, Complete 05/06/19 Body Fluid Culture - Final, Complete Escherichia Coli Enterococcus Raffinosus Assessment This is a 58 y/o M w/ a PMH significant for alcoholic cirrhosis, HTN, and CHF, admitted for spontaneous bacterial peritonitis, and now found to be in urinary retention. Under sterile conditions I was able to place a 20Fr coude catheter w/o difficulty. Upon placement between 250-300cc of dark anthony colored urine drained. Plan - keep catheter to gravity drainage - continue flomax (if safe from BP standpoint) - when patient is discharged arrange f/u in urology clinic for catheter removal and voiding trial RYAN WALKER MD May 09, 2019 16:38
--- NOTE | 2019-05-09 16:44 | REP ---
RENAL ULTRASOUND: Real-time ultrasonographic evaluation of the kidneys are performed. Kidneys are normal in size and echotexture, right kidney measures 11.5 x 6.2 x 4.1 cm and left kidney 11.0 x 4.9 x 4.7 cm. There is no hydronephrosis bilaterally. No definite renal mass is seen. Moderate ascites is present. IMPRESSION: No hydronephrosis. Moderate ascites. Electronically Signed by Alejandro Angela MD 05/14/2019 09:55 A
--- NOTE | 2019-05-09 17:15 | REP ---
Portable chest x-ray: Semi-erect AP view. History: Shortness of breath. Findings: A right-sided PICC line is seen in place with its tip in the expected location of the superior vena cava. There is discoid atelectasis in the right base. There is some plate-like atelectasis in the left base. No evidence of free intraperitoneal air is seen on the current radiograph. Old post-traumatic changes are noted in the left distal clavicle. Impression: PICC line in place in the SVC. Bibasilar plate-like atelectasis. Electronically Signed by Griffin Galicia MD 05/09/2019 05:07 P
[2019-05-09] MEDS ORDERED: oxyCODONE 5MG TAB PO ONE (17:30)
[2019-05-09] MEDS ORDERED: SODIUM CHLORIDE 0.9% INJ 10 ML SYR IV PRN (17:45)
[2019-05-09] MEDS ORDERED: SODIUM CHLORIDE 0.9% INJ 10 ML SYR IV SCH (18:00)
[2019-05-09] MEDS ORDERED: MORPHINE 10MG/0.5ML ORAL CONCENTRATE SOLUTION U/D SL PRN (21:00)
[2019-05-09] MEDS ORDERED: LORazepam 2 MG/ML VIAL (J2060) IV PRN (21:00)
[2019-05-09] MEDS ORDERED: SCOPOLAMINE 1MG TRANSDERMAL PATCH TOP PRN (21:00)
[2019-05-09] MEDS: ONDANSETRON 4MG/2ML VIAL (J2405) IV PRN (21:02)
--- NOTE | 2019-05-09 21:46 | IPNPDOC ---
Date Seen The patient was seen on 05/09/19. Progress Note I was called at bedside at 1930 for the patient continued to be uncomfortable and in pain. Extensive discussion was made with the and the patient about code status. The patient was adamant that he wanted to be comfortable and not be in pain. Code status was changed to DOUGH MOLDER at 2054 and all orders were placed. The patient did ask for last rites and a senior data mining analyst was called. VS, I&O, 24H, Fishbone Vital Signs/I&O Vital Signs Date Time Temp Pulse Resp B/P (MAP) Pulse Ox O2 Delivery O2 Flow Rate FiO2 05/09/19 21:03 22 Room Air 05/09/19 18:43 97.0 120 89/50 (63) 91 I&O- Last 24 Hours up to 6 AM 05/09/19 06:00 Intake Total 420.0 ml Output Total 0 ml Balance 420.0 ml Laboratory Data 24H LABS Laboratory Tests 2 05/09/19 00:51: Bedside Glucose (Misc Panel) 118H 05/09/19 05:19: Immature Granulocyte % (Auto) 2.9, Neutrophils (%) (Auto) 80.8H, Lymphocytes (%) (Auto) 5.2L, Monocytes (%) (Auto) 10.6H, Eosinophils (%) (Auto) 0.3, Basophils (%) (Auto) 0.2, Neutrophils # (Auto) 13.6H, Lymphocytes # (Auto) 0.9L, Monocytes # (Auto) 1.8H, Eosinophils # (Auto) 0.1, Basophils # (Auto) 0.0, Nucleated Red Blood Cells % (auto) 0.3H, Anion Gap 8, Glomerular Filtration Rate 27.4L, Calcium Level 8.7, Total Bilirubin 2.4H, Direct Bilirubin 1.4H, Aspartate Amino Transf (AST/SGOT) 59H, Alanine Aminotransferase (ALT/SGPT) 34, Alkaline Phosphatase 58, Total Protein 6.1L, Albumin 3.2, Albumin/Globulin Ratio 1.10 05/09/19 11:21: Ammonia 22 05/09/19 12:58: Lactic Acid Level 8.1*H 05/09/19 17:51: Lactic Acid Followup at 4 Hours 11.3*H CBC/BMP Laboratory Tests 05/09/19 05:19 Microbiology Microbiology 05/08/19 Acid Fast Stain, Received Pending 05/08/19 Mycobacterial Culture, Received Pending 05/08/19 Fungal Smear, Received Pending 05/08/19 Fungal Culture, Received Pending 05/08/19 Gram Stain - Final, Resulted 05/08/19 Body Fluid Culture, Resulted Pending 05/08/19 Anaerobic Culture, Resulted Pending 05/07/19 Acid Fast Stain, Received Pending 05/07/19 Mycobacterial Culture, Received Pending 05/07/19 Fungal Smear, Received Pending 05/07/19 Fungal Culture, Received Pending 05/07/19 Gram Stain - Final, Resulted 05/07/19 Body Fluid Culture, Resulted Pending 05/07/19 Anaerobic Culture, Resulted Pending 05/06/19 Blood Culture - Preliminary, Resulted No Growth after 72 hours. All specime... 05/06/19 Blood Culture - Preliminary, Resulted No Growth after 72 hours. All specime... 05/06/19 Gram Stain - Final, Complete 05/06/19 Body Fluid Culture - Final, Complete Escherichia Coli Enterococcus Raffinosus AVILA LIND DO May 09, 2019 21:46
--- NOTE | 2019-05-09 23:08 | ECHO ---
DATE OF PROCEDURE: 05/09/2019 REFERRING PHYSICIAN: Cristina Resendez MD INDICATION: Sepsis, hypotension. HEIGHT: 71 inches WEIGHT: 130 pounds 2D MEASUREMENTS: Aortic root: 3.4 cm Proximal ascending aorta: 2.9 cm Left atrium: 4.1 cm Ventricular septum: 0.86 cm Posterior wall: 0.98 cm Left ventricle diastole: 5.5 cm Left ventricle systole: 2.45 cm inferior vena cava: 1.5 cm DOPPLER MEASUREMENTS: Mild aortic regurgitation. Aortic valve velocity: 225 cm/s LVOT velocity: 164 cm/s LVOT VTI: 26.4 cm No mitral regurgitation. Mitral E velocity: 92.2 cm/s Mitral A velocity: 108 cm/s Mitral deceleration time: 217 ms Mild tricuspid regurgitation. Estimated right ventricle systolic pressure 38 mmHg assuming a right atrial pressure of 5 mmHg. Pulmonary artery acceleration time 121 ms. No pulmonic regurgitation. MITRAL ANNULAR TISSUE DOPPLER: E prime lateral: 11.5 cm/s E prime septal: 7.7 cm/s DESCRIPTION: Rhythm was sinus tachycardia. Image quality was fair. This was a 2D, M-mode, color flow Doppler and pulse wave Doppler examination that included mitral annular tissue Doppler. CONCLUSIONS: 1. Hyperdynamic left ventricle systolic function. No regional wall motion abnormalities of left ventricle. Normal left ventricle internal dimensions and wall thickness. Left ventricular ejection fraction (LVEF) of 75-80% by visual estimate. Probably normal left ventricle (LV) diastolic function taking into account the presence of sinus tachycardia and age. 2. Hyperdynamic right ventricle systolic function. Suggestive of mild elevation of estimated right ventricle systolic pressure. 3. No vegetations identified. 4. Mild aortic valve sclerosis of a three-cuspid aortic valve. Mild aortic regurgitation. No aortic stenosis. 5. Small pericardial effusion. No diastolic chamber collapse. A verbal report was provided by Dr. Lucio to Dr. Santamaria.
--- NOTE | 2019-05-10 06:25 | CR ---
DATE OF CONSULTATION: 05/09/2019 CONSULTATION FOR: Cristina Resendez MD REASON FOR CONSULTATION: Acute renal failure. HISTORY OF PRESENT ILLNESS: Mr. White is a 58-year-old gentleman who is not a good historian. He was admitted to [facility] a couple of days ago with abdominal pain. He was found to have ascites and had a paracentesis performed. He was diagnosed with spontaneous bacterial peritonitis (SBP) and started on antibiotics. He has now developed acute renal failure with no urine output. Apparently, his primary team tried and could not get a Kerr catheter placed. Urology is now going to place the Kerr catheter. A nephrology consultation was requested because of his acute renal failure. The patient also been seen by gastrointestinal (GI) due to his alcoholic liver cirrhosis and recurrent ascites. PAST MEDICAL AND SURGICAL HISTORY (Significant for): 1. Alcoholic cirrhosis. 2. Chronic hypertension. 3. Chronic diastolic congestive heart failure. 4. History of left shoulder surgery. PERSONAL AND SOCIAL HISTORY: Patient has long history of alcoholism. At baseline, he usually drinks about 12 beers per day. He is a who quit smoking. There is no known history of intravenous drug abuse. FAMILY HISTORY: Father had coronary artery disease and mother had lupus. No known history for end-stage renal disease in his close family. MEDICATIONS: His home medications included only lisinopril 10 mg daily. ALLERGIES: The patient has NO KNOWN DRUG ALLERGIES. REVIEW OF SYSTEMS: The patient is somewhat confused and not a good historian. He is unable to answer most of the questions appropriately. Apparently, he came to the emergency room with abdominal pain and had a paracentesis done. He has been given intravenous albumin, but no urine output. Multiple attempts have been made for Kerr catheter placement which have failed. He has abdominal pain and distention, but denies any other complaints. He was very slow to respond to most of the questions. He just did not want to answer. PHYSICAL EXAMINATION: Chronically ill-looking and emaciated middle-aged gentleman laying in the bed without any acute distress. Temperature is 98 degrees Fahrenheit, heart rate 120 per minute and respiratory rate 20 per minute. Blood pressure 106/57 mmHg and oxygen saturation 96%. His head is atraumatic. Neck is supple and without jugular venous distention (JVD) or thyroid enlargement. There is no oral thrush or ulcers. Pupils equal and reactive to light and sclera is anicteric. Heart sounds are tachycardiac and lungs with slightly diminished breath sounds at bases. Abdomen is soft, protuberant and mildly tender. Bowel sounds are not audible. Extremities have no cyanosis or clubbing. Neurologically, he is confused and not very well oriented. He is not able to answer most of the questions appropriately. LABORATORY DATA: On May 06, his BUN was 44 and creatinine 1.16. On May 07, BUN 42 and creatinine 1.11. On May 08, BUN 39 and creatinine 1.44. His lactic acid level was 6.1. Today, his lactic acid level is up to 8.1. Sodium is 134, potassium 4.1, CO2 26, BUN 62 and creatinine 2.57. Total bilirubin 2.4, AST 59, ALT 34, alkaline phosphatase 58 and ammonia level 22. Total protein is 6.1 and albumin 3.2. He had multiple imagings done and ultrasound for a paracentesis. Renal ultrasound was done today which did not show any hydronephrosis. Abdominal x-ray was done yesterday which showed air-fluid levels in small bowel consistent with an ileus or early small-bowel obstruction. Ground-glass density in the abdomen consistent with ascites. He has another abdominal x-ray done today which again showed dilated loops of large and small bowel persistent in the central abdomen. Subtle gas shadow in the paraduodenal region of the right upper quadrant which could be recently identified peritoneal air. No other evidence of free air. He had a CT scan of abdomen and pelvis done on May 07 which did show small amount of free air in the abdomen and pelvis which could be related to recent paracentesis. Consolidation with air bronchogram in the left lower lobe. Cirrhotic liver and a moderate amount of ascites was noted. PROBLEMS: 1. Oliguric acute renal failure is most likely related to ascites and intra-abdominal infection. He most likely has developed bacterial peritonitis related to cirrhosis and ascites. His lactic acid level has increased significantly which is consistent with sepsis. At present, he does not seem to have any significant electrolyte problems or metabolic acidosis. There is no emergent indication for dialysis. I do not feel that the patient is a suitable candidate for dialysis in view of his cirrhosis and recurrent ascites. 2. Cirrhosis of liver with ascites. The patient already had a paracentesis done and was given IV albumin. At present, he is being followed by gastroenterology. 3. Anemia. His anemia is also significant and related to liver problems and chronic malnutrition. No emergent need for a transfusion. All-in-all, the patient has poor prognosis and I do not feel that he is suitable for dialysis. However, at this point there is no emergent indication for dialysis. Thank you for involving me in the evaluation of Mr. White. I will follow him along with you.
[2019-05-10] MEDS ORDERED: VANCOMYCIN HCL 1,000 MG, VIAL MATE ADAPTER 1 EACH in D5W 250 ML IV SCH (09:00)
[2019-05-11 08:41] LABS: VITAMIN B1 LEVEL WHOLE BLOOD 186.1 nmol/L (66.5-200.0)
--- NOTE | 2019-05-11 17:18 | REP ---
Procedure: PICC line insertion with Silvia The procedure was performed under the direct supervision of Dr. Angela. The risks and benefits of the procedure were explained to the patient and informed consent was obtained. The right basilic vein was localized using ultrasound guidance. The skin was prepped and draped in a sterile fashion. 2% lidocaine was used as a local anesthetic. Using ultrasound guidance the basilic vein was cannulated and a 0.018 guidewire was inserted and advanced to the SVC using fluoroscopic guidance. The needle was removed and a 5.5 Jamaican dilator and peel-away sheath was inserted over the guide wire. A 5.5 Jamaican dual lumen catheter was cut to length of 40 cm. The dilator was removed and the catheter was inserted over the guide wire with the tip ending in the SVC. The peel-away sheath was removed and the catheter was flushed with heparinized saline as per Hospital protocol. The catheter was affixed to the skin and a sterile dressing was applied. The patient tolerated the procedure well and there were no immediate complications. 0.2 minutes of fluoro time was utilized for this procedure. Electronically Signed by CHARLIE Odom 05/09/2019 05:09 P Electronically Signed by Alejandro Angela MD 05/11/2019 05:08 P
== END 2019-05-10 04:33 | disposition expired | DRG 871 ==
LOC: M ED 00:42 → M ED INP 03:26 → M PCU 04:52
PROVIDERS: ADMIT Internal Medicine; ATTEND Internal Medicine Nephrology
PROC: 0W9G3ZZ Drainage of Peritoneal Cavity, Percutaneous Approach (ICD-10-PCS; principal; 2019-05-07 14:00)
PROC: 0W9G3ZZ Drainage of Peritoneal Cavity, Percutaneous Approach (ICD-10-PCS; 2019-05-08)
PROC: 02HV33Z Insertion of Infusion Device into Superior Vena Cava, Percutaneous Approach (ICD-10-PCS; 2019-05-09)
DX: A41.9 Sepsis, unspecified organism (principal); K65.0 Generalized (acute) peritonitis; G93.41 Metabolic encephalopathy; I50.42 Chronic combined systolic (congestive) and diastolic (congestive) heart failure; N17.9 Acute kidney failure, unspecified; J90 Pleural effusion, not elsewhere classified; E87.2 Acidosis; E46 Unspecified protein-calorie malnutrition; K70.31 Alcoholic cirrhosis of liver with ascites; I11.0 Hypertensive heart disease with heart failure; D53.9 Nutritional anemia, unspecified; F17.200 Nicotine dependence, unspecified, uncomplicated; R33.9 Retention of urine, unspecified